=== PATIENT | female | born 1950 | race Caucasian/White ===

== ENCOUNTER 2016-11-30 13:54 | Outpatient (CLI) ==
[2016-10-24 20:20] VITALS: BMI 30.2
--- NOTE | 2016-11-30 15:52 | MRI ---
EXAM: MRI lumbar spine without IV contrast. DATE: 11/30/2016. HISTORY: Low back pain. TECHNIQUE: Sagittal and axial T1W and T2W sequences of the lumbar spine along with sagittal IR and coronal T2W sequences were obtained using 1.2 Zena magnet. No IV contrast. COMPARISON: CT L-spine 10/24/2016. MRI L-spine 28 February 2016.. FINDINGS: There are five [id number] lumbar vertebra. Minimal/mild rotatory levoscoliosis of t he lumbar spine is observed, with apex of curvature at L3-4. Minor subluxations at L1-2, L2-3, and L4-5 are similar to previous MRI. There is approximate 3 mm left lateral subluxation of L4 relative to L5. Prominent anterior and lateral osteophytes are seen at multiple lumbar levels. No acute fr acture, osseous malignancy, or pars interarticularis defect is identified. Decompression laminectom ies have been formed at L3, L4, and L5. Partial facet resections are noted at L3 and L4. T2W/T1W b right, 5 mm and 9 mm foci in the L5 body are likely benign hemangiomas. Mild T11-12, mild L1-2, min or L2-3, mild L3-4, minor right-sided L4-5, and marked L5-S1 disc space narrowing is detected. No s acral fracture or stress reaction is evident. 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 C onus medullaris terminates at L1. Visible spinal cord is normal. No retroperitoneal lymphadenopathy, paraspinal mass, or aortic aneurysm is detected. Psoas muscles are normal. There is mild to marked bilateral posterior paraspinal muscle atrophy at L5 and S1 leve ls. Multiple bilateral renal cysts with T2W bright, T1W dark signal are similar to February 2016. A la rge, loculated cyst in the mid/upper pole left kidney appears to be 9.7 cm in length and contains in ternal calcifications. Largest cyst in the right kidney measures 3.7 x 4.1 cm, and is located at th e medial cortex midzone. No definitive solid renal mass or hydronephrosis. No distinct adrenal, hep atic, or splenic neoplasm is identified. CBD is 7.9 mm diameter, without distinct focal stones or p ancreatic head mass/inflammation. Segmental analysis: T11-12: Small posterior disc bulge causes minor central canal stenosis, but does not contact the co rd. Left foramen slightly narrowed due to mild facet disease. T12-L1: Minor posterior disc bulge does not cause central stenosis or foraminal stenosis. L1-2: Mild anterior subluxation of L2, moderate concentric disc bulge, spondylotic ridge at the L1 inferior endplate, mild facet arthropathy and mild ligamentum flavum hypertrophy cause mild central canal stenosis and mild bilateral foraminal stenoses. L2-3: Minor anterior subluxation of L2, moderate concentric disc bulge, small spondylotic ridge at the L2 inferior endplate, mild bilateral facet arthropathy, and slight ligamentum flavum hypertrophy cause triangulation of the canal and mild bilateral foraminal stenoses. L3-4: S/P decompression laminectomies. Moderate concentric disc bulge and mild bilateral facet art hropathy cause moderate right and mild left foraminal stenoses. Right L3 nerve root approaches the disc bulge near the lateral margin of the foramen. No central canal stenosis. L4-5: S/P decompression laminectomies. Small pseudodisc bulge, moderate right facet arthropathy, m ild left facet arthropathy cause mild/moderate right and mild left foraminal stenoses. Each L4 nerv e root contacts the disc bulge near the lateral margin of the foramen. No central canal stenosis. Left L5-S1: Moderate concentric disc bulge, small spondylotic ridge at the L5 inferior endplate, an d mild bilateral facet arthropathy cause mild left foraminal narrowing. Left L5 nerve root contacts disc bulge/osteophyte near the foramen. No central canal stenosis. IMPRESSIONS: 1. S/P decompression laminectomies and facet resections at L3-4 and L4-5. 2. Multilevel central canal stenoses (T11-12: Minor. L1-2: Mild. L2-3: (Minor). 3. Multilevel foraminal stenosis. Right L3, both L4, and left L5 nerve roots contact disc bulges/o steophytes near the foramen, and could be sources for pain/radiculopathy. 4. Chronic Schmorl's nodes at T11 and L1. 5. Benign hemangiomas in the L5 vertebra. 6. Bilateral renal cortical cysts, similar to February 2016.
== END 2016-11-30 13:55 | disposition home or self-care (01) ==
LOC: RAD 13:54
PROVIDERS: ATTEND Nurse Practitioner Family
DX: M54.5 Low back pain (principal); M54.10 Radiculopathy, site unspecified; Z98.890 Other specified postprocedural states; V89.2XXD Person injured in unspecified motor-vehicle accident, traffic, subsequent encounter

== ENCOUNTER 2017-03-23 09:26 | Emergency (ER) ==
[2017-03-23 09:30] VITALS: BP 135/84; TEMP 99.5; BMI 32.1
--- NOTE | 2017-03-23 09:51 | ED.PDOC ---
General ED Provider: Dr. RADHA HENLEY JR Chief Complaint: Abdominal Pain Stated Complaint: sharp pain to lower abd--no previous episode--pain is constant --cold chills at times--no change in bowel or bladder [End] 2 days 99.5 84 16 97 135/84 1010 Time Seen by Physician: 09:51 Information Source: Patient Exam Limitations: No limitations Primary Care Provider[facility] Documentation Reviewed and Agree: No Review of Systems - Review Of Systems Constitutional: Reports: No symptoms Eyes: Reports: No symptoms Ears, Nose, Mouth, Throat: Reports: No symptoms Respiratory: Reports: No symptoms Cardiac: Reports: No symptoms GI: Reports: Abdomen distended, Abdominal pain : Reports: No symptoms Musculoskeletal: Reports: No symptoms Skin: Reports: No symptoms Neurological: Reports: No symptoms Endocrine: Reports: No symptoms Hematologic/Lymphatic: Reports: No symptoms All Other Systems: Other Past Medical History - Past Medical History Previously Healthy: No Endocrine: Reports: None Cardiovascular: Reports: Hypertension Respiratory: Reports: COPD Hematological: Reports: Anemia Gastrointestinal: Reports: GERD, Liver (hepc), Other (h/o HEP c s/p treatments) Genitourinary: Reports: Kidney stones Neuro/Psych: Reports: Anxiety, Depression Musculoskeletal: Reports: Arthritis, Back Pain Cancer: Reports: None Last Menstrual Period: hysterectomy Other Pertinent Past Medical History: htn ks arth chronic back hepc - Surgical History General Surgical History: Reports: Hysterectomy, Appendectomy, Cholecystectomy, Back Surgery - Family History Family History: Reports: None - Social History Smoking Status: Former smoker Hx Substance Use: No Alcohol Screening: None - Immunizations Tetanus Shot up to Date: Yes Physical Exam - Physical Exam Appearance: Well-appearing Ill-appearing: Moderate Pain Distress: Moderate Eyes: ONDINA, EOMI, Conjunctiva clear ENT: Ears normal, Nose normal, Oropharynx normal Neck: Supple Respiratory: Airway patent, Breath sounds clear, Breath sounds equal, Respirations nonlabored Cardiovascular: RRR, Pulses normal, No rub, No murmur GI/: Soft, No masses, Bowel sounds normal, Tender Musculoskeletal: Normal strength, ROM intact, No edema, No calf tenderness Skin: Warm, Dry, Normal color Neurological: Sensation intact, Motor intact, Reflexes intact, Cranial nerves intact, Alert, Oriented Psychiatric: Affect appropriate, Mood appropriate Critical Care Note - Critical Care Note Total Time (mins): 0 Course - Course Hematology/Chemistry: 03/23/17 10:00 03/23/17 10:00 Orders, Labs, Meds: Lab Review 03/23/17 10:00 WBC 6.99 RBC 4.30 Hgb 12.7 Hct 37.8 MCV 87.9 MCH 29.5 MCHC 33.6 RDW Coeff of Riki 13.6 Plt Count 181 Immature Gran % (Auto) 0.3 Neut % (Auto) 58.5 Lymph % (Auto) 32.8 Titus % (Auto) 7.7 Eos % (Auto) 0.4 Baso % (Auto) 0.3 Immature Gran # (Auto) 0.0 Neut # 4.1 Lymph # 2.3 Titus # 0.5 Eos # 0.0 Baso # 0.0 Sodium 139 Potassium 4.7 Chloride 106 Carbon Dioxide 24 Anion Gap 13.7 BUN 28 H Creatinine 1.00 Estimated GFR (MDRD) 55.00 BUN/Creatinine Ratio 28.00 Glucose 98 Calcium 9.6 Total Bilirubin 0.81 AST 42 H ALT 40 Alkaline Phosphatase 169 H Total Protein 8.3 H Albumin 4.0 Globulin 4.3 Albumin/Globulin Ratio 0.93 Amylase 58 Lipase 31 Procalcitonin < 0.05 Urine Color Yellow Urine Clarity Clear Urine pH 5.5 Ur Specific [place] 1.015 Urine Protein Negative Urine Glucose (UA) Negative Urine Ketones Negative Urine Blood Negative Urine Nitrite Negative Urine Bilirubin Negative Urine Urobilinogen 0.2 Ur Leukocyte Esterase Negative H. pylori IgG Antibody Negative Orders Category Date Time Status AMYLASE Stat LAB 03/23/17 10:00 Completed CBC W/ AUTO DIFF Stat LAB 03/23/17 10:00 Completed COMPREHENSIVE METABOLIC PANEL Stat LAB 03/23/17 10:00 Completed H. PYLORI SCREEN Stat LAB 03/23/17 10:00 Completed LIPASE Stat LAB 03/23/17 10:00 Completed PROCALCITONIN Stat LAB 03/23/17 10:00 Completed URINALYSIS C & S IF INDICATED Stat LAB 03/23/17 10:00 Completed Ketorolac Tromethamine [Toradol] MEDS 03/23/17 10:13 Discontinued 60 mg IM ONCE STA CT ABDOMEN/PELVIS WO CONTRAST Stat RADS 03/23/17 09:54 Completed Medications Discontinued Medications Generic Name Dose Route Start Last Admin Trade Name Freq PRN Reason Stop Dose Admin Ketorolac Tromethamine 60 mg 03/23/17 10:13 03/23/17 10:30 Toradol IM 03/23/17 10:14 60 mg ONCE STA Administration Vital Signs: Temp Pulse Resp BP Pulse Ox 03/23/17 09:26 99.5 F 84 16 135/84 97 Departure - Departure Time of Disposition: 11:27 Disposition: HOME SELF-CARE Discharge Problem: Abdominal pain Instructions: Acute Abdominal Pain (ED) Condition: Good Pt referred to PMD for follow-up: Yes Additional Instructions: recheck PMD one week sooner if worse Naprosyn for pain [place] for pain not controlled may need peptobismol if any diarrhea no evidence of infection Prescriptions: Hydrocodone Bit/Acetaminophen [[place] 5-325] 1 - 2 tab PO Q6HR PRN #12 tablet PRN Reason: pain Naproxen [Naprosyn] 500 mg PO Q12HR PRN #30 tablet PRN Reason: PAIN Allergies/Adverse Reactions: Allergies morphine Allergy (Intermediate, Verified 03/23/17 09:32) itching tizanidine HCl [From Zanaflex] Adverse Reaction (Verified 03/23/17 09:32) hallucinations Home Medications: Ambulatory Orders Hydrocodone Bit/Acetaminophen [[place] 7.5-325] 7.5 - 325 mg PO DAILY PRN Gabapentin [Neurontin] 300 mg PO TID 11/12/16 Hydrocodone Bit/Acetaminophen [[place] 5-325] 1 - 2 tab PO Q6HR PRN #12 tablet 08/01 Naproxen [Naprosyn] 500 mg PO Q12HR PRN #30 tablet 03/23/17
[2017-03-23 10:10] LABS: BASOPHILS % (AUTO) 0.3 % (0.0-3.0); EOSINOPHILS % (AUTO) 0.4 % (0.0-7.0); HEMATOCRIT 37.8 % (37.0-47.0); HEMOGLOBIN 12.7 g/dl (12.0-16.0); IMMATURE GRANULOCYTE % (AUTO) 0.3 % (0.0-5.0); LYMPHOCYTES # (AUTO) 2.3 K/uL (0.60-3.4); LYMPHOCYTES % (AUTO) 32.8 (10.0-50.0); MEAN CORPUSCULAR HEMOGLOBIN 29.5 pg (27.0-31.0); MEAN CORPUSCULAR HGB CONC 33.6 (31.8-35.4); MEAN CORPUSCULAR VOLUME 87.9 fl (81.0-99.0); MONOCYTES # (AUTO) 0.5 K/uL (0.4-2.0); MONOCYTES % (AUTO) 7.7 (0-10); NEUTROPHILS # (AUTO) 4.1 K/ul (2.0-6.9); NEUTROPHILS % (AUTO) 58.5; PLATELET COUNT 181 10^3/uL (140-440); WHITE BLOOD COUNT 6.99 K/ul (4.6-10.2)
[2017-03-23] MEDS ORDERED: TORADOL IM STA (10:13)
[2017-03-23 10:17] LABS: BILIRUBIN,URINE Negative (NEGATIVE); KETONES,URINE Negative (NEGATIVE); LEUKOCYTE ESTERASE ,URINE Negative (NEGATIVE); NITRITE,URINE Negative (NEGATIVE); PH,URINE 5.5 (5-9); PROTEIN,URINE Negative (NEGATIVE); URINE, BLOOD Negative (NEGATIVE)
[2017-03-23 10:22] LABS: H. PYLORI ANTIBODY NEGATIVE (NEGATIVE); H.PYLORI INTERNAL QC INTERNAL QC VALID
[2017-03-23 10:23] LABS: ADD URINE MICROSCOPIC NO
[2017-03-23 10:32] LABS: ALBUMIN/GLOBULIN RATIO 0.93; ANION GAP 13.7; BILIRUBIN,TOTAL 0.81 mg/dL (0.00-1.20); CALCIUM 9.6 mg/dL (8.2-10.2); POTASSIUM 4.7 mmol/L (3.5-5.10); TOTAL PROTEIN 8.3 g/dL (5.8-8.1)
--- NOTE | 2017-03-23 10:56 | CT ---
EXAM: CT ABDOMEN AND PELVIS HISTORY: Lower abdominal/groin pain TECHNIQUE: CT abdomen and pelvis without intravenous contrast. Images were reconstructed using 5 m m section thickness. Reformations were prepared. COMPARISON: 07/09/2016 FINDINGS: Diagnostic limitations exist without including contrast enhanced images. No focal hepatic or spleni c lesions. Gallbladder is absent. Pancreas and adrenal glands reveal no pathology. Bilateral renal cortical cystic masses with the largest on the left demonstrating a partially calcif ied septation and measuring up to 7.5 cm. These are unchanged since the comparison study and when c ompared to older exam including 2009 this larger cystic mass does not appear obviously changed altho ugh some of the smaller cystic masses have slightly enlarged. These can be followed by ultrasound t o assure simple nature and stability. There is no hydronephrosis or evidence of ureteral obstructio n. Mild aortic atherosclerosis. No gastric distension. An appendix, if present is not seen. No right lower quadrant inflammation is obvious. Unremarkable bowel gas pattern. No uterus is seen. Urina ry bladder appears normal. There is no ascites or inflammatory infiltration of the abdominal fat. No abdominal wall hernia. Severe degenerative disc and facet disease of the lumbar spine. Moderate arthropathy of the sacroiliac joints. The lung bases are free of acute infiltrate. No pneumoperit oneum. IMPRESSION: 1. No obvious acute intra-abdominal or pelvic abnormality. 2. Multiple cystic masses of the kidneys suggesting cysts with one on the left large and slightly c omplex. This larger entity is stable since older exams. These can be followed by ultrasound to ass ure a simple nature and stability. 2. Severe degenerative changes of the lower spine and sacroiliac joints.
== END 2017-03-23 11:35 | disposition home or self-care (01) ==
LOC: ED 09:26
DX: R10.30 Lower abdominal pain, unspecified (principal); R14.0 Abdominal distension (gaseous); I10 Essential (primary) hypertension; Z87.442 Personal history of urinary calculi; Z79.899 Other long term (current) drug therapy
CPT/HCPCS: 36415; 80053; 81001; 82150; 83690; 84145; 85025; 86677; 96372; 99283

== ENCOUNTER 2017-07-12 08:19 | Emergency (ER) ==
[2017-07-12 08:19] VITALS: BMI 32.1
[2017-07-12 08:24] VITALS: BP 143/67; TEMP 99.1
[2017-07-12] MEDS ORDERED: TORADOL IM STA (08:39)
[2017-07-12] MEDS ORDERED: ATIVAN PO STA (08:42)
--- NOTE | 2017-07-12 08:43 | ED.PDOC ---
General ED Provider: Dr. RADHA HENLEY JR Chief Complaint: Neck Pain Non-Injury Stated Complaint: woke hurting; heat ice tylenol without relief; if turns her head pain up into her head[End][End]2 days neck pain 99.1 100 16 96% 143/67 Time Seen by Physician: 08:43 Mode of Arrival: Walk-In Information Source: Patient Exam Limitations: No limitations Primary Care [facility] T[facility] Documentation Reviewed and Agree: No Review of Systems - Review Of Systems Constitutional: Reports: Malaise, Weakness Eyes: Reports: No symptoms Ears, Nose, Mouth, Throat: Reports: No symptoms Respiratory: Reports: No symptoms Cardiac: Reports: No symptoms GI: Reports: No symptoms : Reports: No symptoms Musculoskeletal: Reports: Neck pain Skin: Reports: No symptoms Neurological: Reports: No symptoms Endocrine: Reports: No symptoms Hematologic/Lymphatic: Reports: No symptoms All Other Systems: Other Past Medical History - Past Medical History Previously Healthy: No Endocrine: Reports: None Cardiovascular: Reports: Hypertension Respiratory: Reports: COPD Hematological: Reports: Anemia Gastrointestinal: Reports: GERD, Liver (hepc), Other (h/o HEP c s/p treatments) Genitourinary: Reports: Kidney stones Neuro/Psych: Reports: Anxiety, Depression Musculoskeletal: Reports: Arthritis, Back Pain Cancer: Reports: None Last Menstrual Period: n/a HYSTERECTOMY - Surgical History General Surgical History: Reports: Hysterectomy, Appendectomy, Cholecystectomy, Back Surgery (LUMBAR) - Family History Family History: Reports: None - Social History Smoking Status: Former smoker Hx Substance Use: No Alcohol Screening: None Physical Exam - Physical Exam Appearance: Well-appearing Ill-appearing: Mild Pain Distress: Moderate Eyes: ONDINA, EOMI, Conjunctiva clear ENT: Ears normal, Nose normal, Oropharynx normal Neck: Nonsupple (complains of pain with exam but no rigidity on exam tender paraspinls ans posterior cspine) Respiratory: Airway patent, Breath sounds clear, Breath sounds equal, Respirations nonlabored Cardiovascular: RRR, Pulses normal, No rub, No murmur GI/: Soft, Nontender, No masses, Bowel sounds normal, No Organomegaly Musculoskeletal: Normal strength, ROM intact, No edema, No calf tenderness Skin: Warm, Dry, Normal color Neurological: Sensation intact, Motor intact, Reflexes intact, Cranial nerves intact, Alert, Oriented Psychiatric: Affect appropriate, Mood appropriate Re-Evaluation - Re-Evaluation Time of Re-Evaluation: 09:27 Status: Improved (refuses neck films will follow with PMD) Critical Care Note - Critical Care Note Total Time (mins): 0 Course - Course Orders, Labs, Meds: Orders Category Date Time Status Ketorolac Tromethamine [Toradol] MEDS 07/12/17 08:39 Discontinued 60 mg IM ONCE STA Lorazepam [Ativan] MEDS 07/12/17 08:42 Discontinued 0.5 mg PO ONCE STA CT CERVICAL SPINE W/O CONTRAST Stat RADS 07/12/17 09:11 Ordered Medications Discontinued Medications Generic Name Dose Route Start Last Admin Trade Name Freq PRN Reason Stop Dose Admin Ketorolac Tromethamine 60 mg 07/12/17 08:39 07/12/17 09:02 Toradol IM 07/12/17 08:40 60 mg ONCE STA Administration Lorazepam 0.5 mg 07/12/17 08:42 07/12/17 09:10 Ativan PO 07/12/17 08:43 0.5 mg ONCE STA Administration Vital Signs: Temp Pulse Resp BP Pulse Ox 07/12/17 08:20 99.1 F 100 H 16 143/67 H 96 Departure - Departure Time of Disposition: 09:29 Disposition: HOME SELF-CARE Discharge Problem: Neck pain Instructions: Muscle Spasm (ED), Cervical Strain (ED) Condition: Good Pt referred to PMD for follow-up: Yes Additional Instructions: follow up with your physician this week X RAYS OF NECK WERE NOT DONE may use Toradol for pain discuss with your physician this week Prescriptions: Ketorolac Tromethamine [Toradol] 10 mg PO QID PRN #20 tablet PRN Reason: PAIN Allergies/Adverse Reactions: Allergies morphine Allergy (Intermediate, Verified 07/12/17 08:25) itching tizanidine HCl [From Zanaflex] Adverse Reaction (Verified 07/12/17 08:25) hallucinations Home Medications: Ambulatory Orders Hydrocodone Bit/Acetaminophen [[place] 7.5-325] 7.5 - 325 mg PO DAILY PRN Gabapentin [Neurontin] 300 mg PO TID 11/12/16 Ketorolac Tromethamine [Toradol] 10 mg PO QID PRN #20 tablet 07/12/17
== END 2017-07-12 09:35 | disposition home or self-care (01) ==
LOC: ED 08:19
DX: M54.2 Cervicalgia (principal)
CPT/HCPCS: 96372; 99282

== ENCOUNTER 2017-08-03 13:23 | Outpatient (CLI) | payer OTHER ==
[2017-08-03 15:29] LABS: ALBUMIN 3.6 g/dL (3.4-5.0); ALBUMIN/GLOBULIN RATIO 0.82; ANION GAP 12.6; BILIRUBIN,TOTAL 0.6 mg/dL (0.00-1.20); BUN/CREATININE RATIO 21.33; CALCIUM 9.8 mg/dL (8.2-10.2); CHOL/HDL RATIO 2.9 (4.5-5.5); CREATININE 0.75 mg/dL (0.60-1.30); POTASSIUM 4.6 mmol/L (3.5-5.10)
== END 2017-08-03 13:24 | disposition home or self-care (01) ==
LOC: LAB 13:23
PROVIDERS: ATTEND Nurse Practitioner Family
DX: I10 Essential (primary) hypertension (principal); F41.1 Generalized anxiety disorder
CPT/HCPCS: 36415; 80053; 80061; 84443

== ENCOUNTER 2017-10-14 08:19 | Emergency (ER) ==
[2017-10-14 08:24] VITALS: BP 128/88; TEMP 98.8; BMI 33.0
--- NOTE | 2017-10-14 09:22 | ED.PDOC ---
General ED Provider: Dr. SOFI VERAS Chief Complaint: Extremity Swelling/Pain Stated Complaint: right lower leg pain and brsuing Time Seen by Physician: 08:30 (no trama reported ) Mode of Arrival: Walk-In Information Source: Patient Exam Limitations: No limitations Primary Care Provider: [facility] Nursing and Triage Documentation Reviewed and Agree: Yes Musculoskeletal Complaint Exam - Lower Extremity Complaint/Exam Location of Pain: Reports: Right, Leg (below knee brused and tender ) Mechanism of Injury: Reports: No known trauma Onset/Duration: 1 day Symptoms Are: Still present Onset of Pain: Reports: Hours Initial Severity: Mild Current Severity: Mild Location: Reports: Discrete (right tib/fib) Character: Reports: Aching Alleviating: Reports: Rest Aggravating: Reports: None Able to Bear Weight: Yes Associated Signs and Symptoms: Reports: Bruising. Denies: Swelling, Redness, Fever, Weakness, Numbness, Tingling Septic Arthritis Risk Factors: Reports: None Related Surgical History: Reports: None Compartment Syndrome Risk Factors: Present: Pain Differential Diagnoses: DVT, Fracture, Strain, Sprain Review of Systems - Review Of Systems Constitutional: Reports: No symptoms Eyes: Reports: No symptoms Ears, Nose, Mouth, Throat: Reports: No symptoms Respiratory: Reports: No symptoms Cardiac: Reports: No symptoms GI: Reports: No symptoms : Reports: No symptoms Musculoskeletal: Reports: Other (right tib/fib brusing and pain) Skin: Reports: No symptoms Neurological: Reports: No symptoms Endocrine: Reports: No symptoms Hematologic/Lymphatic: Reports: No symptoms All Other Systems: Reviewed and Negative Past Medical History - Past Medical History Previously Healthy: No Endocrine: Reports: None Cardiovascular: Reports: Hypertension Respiratory: Reports: COPD Hematological: Reports: Anemia Gastrointestinal: Reports: GERD, Liver (hepc), Other (h/o HEP c s/p treatments) Genitourinary: Reports: Kidney stones Neuro/Psych: Reports: Anxiety, Depression Musculoskeletal: Reports: Arthritis, Back Pain Cancer: Reports: None Last Menstrual Period: n/a Other Pertinent Past Medical History: htn ks arth chronic back hepc - Surgical History General Surgical History: Reports: Hysterectomy, Appendectomy, Cholecystectomy, Back Surgery (LUMBAR) - Family History Family History: Reports: None - Social History Smoking Status: Former smoker Hx Substance Use: No Alcohol Screening: None Physical Exam - Physical Exam Appearance: Well-appearing, No pain distress, Well-nourished Eyes: ONDINA, EOMI, Conjunctiva clear ENT: Ears normal, Nose normal, Oropharynx normal Respiratory: Airway patent, Breath sounds clear, Breath sounds equal, Respirations nonlabored Cardiovascular: RRR, Pulses normal, No rub, No murmur GI/: Soft, Nontender, No masses, Bowel sounds normal, No Organomegaly Musculoskeletal: Calf tenderness (right and right tib fib brused ) Skin: Warm, Dry, Normal color Neurological: Sensation intact, Motor intact, Reflexes intact, Cranial nerves intact, Alert, Oriented Psychiatric: Affect appropriate, Mood appropriate Critical Care Note - Critical Care Note Total Time (mins): 0 Course - Course Orders, Labs, Meds: Orders Category Date Time Status ANKLE, RIGHT MIN 3 VIEWS Stat RADS 10/14/17 08:37 Ordered FOOT, RIGHT 3 VIEWS Stat RADS 10/14/17 08:37 Ordered TIBIA/FIBULA, RIGHT 2 VIEW Stat RADS 10/14/17 08:37 Ordered U/S VENOUS SCAN RT. LEG Stat RADS 10/14/17 08:36 Ordered Vital Signs: Temp Pulse Resp BP Pulse Ox 10/14/17 08:21 98.8 F 96 H 16 128/88 97 Departure - Departure Time of Disposition: 10:10 (see photos) Disposition: HOME SELF-CARE Discharge Problem: Contusion of leg, right Qualifiers: Encounter type: initial encounter Qualified Code(s): S80.11XA - Contusion of right lower leg, initial encounter Instructions: Leg Pain (ED), Contusion in Adults (ED) Condition: Good Pt referred to PMD for follow-up: Yes Additional Instructions: Please call your Family Physician as soon as possible to schedule a follow-up appointment. Allergies/Adverse Reactions: Allergies morphine Allergy (Intermediate, Verified 10/14/17 08:25) itching tizanidine HCl [From Zanaflex] Adverse Reaction (Verified 10/14/17 08:25) hallucinations Home Medications: Ambulatory Orders Hydrocodone/Acetaminophen [[place] 7.5-325 Tablet] 1 each PO BID #60 tab-cap 08/03 Disposition Discussed With: Patient
--- NOTE | 2017-10-14 09:26 | DI ---
EXAM: Three views of the right foot. History: Right foot pain. Findings: No acute fracture or dislocation. Mild polyarticular joint space narrowing. Small plantar spur. No radiopaque foreign bodies. Atherosclerotic vascular calcifications. Impression: No acute osseous abnormality
--- NOTE | 2017-10-14 09:27 | DI ---
EXAM: Two views of the right tibia and fibula. History: Right leg pain. Findings: No acute fracture or dislocation. Mild degenerative changes seen at the right knee joint. No radiopaque foreign bodies. Impression: No acute osseous abnormality
--- NOTE | 2017-10-14 09:27 | DI ---
EXAM: RIGHT ANKLE THREE VIEWS HISTORY: Pain. FINDINGS / IMPRESSION: Trabecular markings are accentuated consistent with at least mild diffuse dem ineralization. No significant arthropathy is seen. There is no fracture or joint effusion. Mild bruce ny spurring of the posterior calcaneus.
--- NOTE | 2017-10-14 09:50 | US ---
EXAM: Right lower extremity venous doppler. HISTORY: Right leg pain and swelling for 3 days. COMPARISON: None available. TECHNIQUE: Multiple grayscale and color doppler images were obtained. FINDINGS: There is normal flow, compressibility and augmentation of flow within the right common fem oral, greater saphenous, profunda, femoral, popliteal, posterior tibial, anterior tibial and peroneal veins. IMPRESSION: No evidence for right lower extremity deep vein thrombosis at the levels examined.
== END 2017-10-14 09:37 | disposition home or self-care (01) ==
LOC: ED 08:19
DX: S80.11XA Contusion of right lower leg, initial encounter (principal); M79.661 Pain in right lower leg
CPT/HCPCS: 99283

== ENCOUNTER 2017-12-07 08:52 | Outpatient (CLI) ==
--- NOTE | 2017-12-08 08:43 | MRI ---
EXAM: Lumbar spine MRI without and with contrast. HISTORY: Dorsalgia. COMPARISON: Lumbar spine MRI 11/30/2016. TECHNIQUE: Multiplanar, multisequence MR images were acquired of the lumbar spine without and with c ontrast. Some sequences are degraded by patient motion. FINDINGS: Conus medullaris ends at L1 and has normal signal intensity and no abnormal leptomeningeal enhancement. Five non-rib bearing lumbar vertebra are present. There is mild rotatory levoscoliosi s centered at L3-4, 3 mm leftward translation of L3 with respect to L2 and 4 mm rightward translation of L5 with respect to L4 unchanged from previously. There is mild loss of the usual smooth lumbar l ordosis with 2 mm retrolisthesis of L1 on L2 and L2 on L3 and 3 mm degenerative anterolisthesis of L4 on L5 unchanged from previously. The lumbar vertebra are generally normal in height and intrinsic b one marrow signal. There is osteophytosis with moderate to marked disc space narrowing and mild endp late irregularity that is greatest left laterally at L1-2, right laterally at L3-4 and laterally bila terally at L5-S1. Mild bright STIR signal edema is present along the anterior endplates at T12-L1 an d L1-2. There are chronic Schmorl's nodes at T11, L1, L2 and L4. Benign intraosseous hemangiomas ar e present at L5. There is osteoarthrosis of both sacroiliac joints. There is mild bright STIR signal edema in the right posterior paraspinous muscles from L3-S1, greatest at L5-S1. The partially visualized liver and spleen are unremarkable. Multiple bilateral renal cysts are prese nt and there is a large partially visualized loculated cyst with septations arising from the upper po le of the left kidney that measures at least 12.3 cm AP x 12.3 cm in length. T11-12: There is a minor diffuse disc bulge with marginal osteophytes and a moderate left paracentra l disc protrusion which is better shown on the present exam. This mildly indents the left ventral tho racic cord although cerebrospinal fluid is preserved around the cord. There is no central canal sten osis or foraminal stenosis. T12-L1: There is a mild spondylotic disc bulge and mild bilateral facet arthropathy and ligamentum f lavum hypertrophy without foraminal stenosis or central canal stenosis. L1-2: There is retrolisthesis of L1 on L2 and there is a moderate disc bulge and mild bilateral hype rtrophic facet arthropathy and ligamentum flavum hypertrophy. This causes mild spinal stenosis and m ild to moderate bilateral foraminal stenosis. AP diameter of the thecal sac is 9 mm. L2-3: There is minor retrolisthesis of L2 on L3 and there is a mild to moderate disc bulge and bilat eral hypertrophic facet arthropathy and ligamentum flavum hypertrophy. There is triangulation of the thecal sac and mild to moderate right and mild left neural foraminal stenosis. L3-4: There are postoperative bilateral decompressive hemilaminectomy and partial medial facetectomy changes. Enhancing dorsal epidural fibrosis is present which extends into the medial posterior para spinous muscles. There is a diffuse disc bulge that is asymmetric to the right with moderate right l ateral/far endplate osteophytes that narrows the inferior right neural foramen and encroach on the ex iting right L3 nerve. Residual right greater than left hypertrophic facet arthropathy is present and there is moderate right and mild left neural foraminal stenosis. There is no central canal stenosis . L4-5: There are postoperative bilateral decompressive hemilaminectomy and partial medial facetectomy changes. Enhancing lateral and dorsal epidural fibrosis is present which partially surrounds the ri ght L4 nerve in the medial right foramen. There is a diffuse disc bulge/pseudo disc bulge that is as ymmetric to the right which contacts both exiting L4 nerves. Residual right greater than left hypert rophic facet arthropathy is present and there is moderate right and mild to moderate left neural fora josefina stenosis with compression of the right L4 nerve. There is no central canal stenosis. L5-S1: There is a diffuse spondylotic disc bulge with bilateral lateral/far lateral endplate osteoph ytes, larger on the left that narrow the inferior neural foramina bilaterally and encroach on both ex iting L5 nerves. There are postoperative bilateral hemilaminectomy and partial medial facetectomy ch anges. Residual left facet hypertrophy is present and there is mild left neural foraminal stenosis. IMPRESSION: 1. Compared to 11/30/2016, there are stable postoperative bilateral decompressive hemilaminectomy an d partial facetectomy changes at L3-4, L4-5 and L5-S1 with enhancing epidural fibrosis at L4-5 that e xtends into the medial right neural foramen partially surrounding the right L4 nerve. No central can al stenosis. 2. No change 3 mm degenerative anterolisthesis L4 on L5 and moderate lumbar degenerative spondylosis with mild spinal stenosis at L1-2. 3. Multilevel foraminal stenosis. 4. Multiple bilateral renal cysts are present with a large partially visualized exophytic left renal multiloculated cyst. Dedicated CT or MRI could better define the anatomy.
== END 2017-12-07 08:53 | disposition home or self-care (01) ==
LOC: RAD 08:52
PROVIDERS: ATTEND Nurse Practitioner Family
DX: M54.9 Dorsalgia, unspecified (principal); G89.29 Other chronic pain; M54.10 Radiculopathy, site unspecified; F41.1 Generalized anxiety disorder
CPT/HCPCS: 36415; 80053; 85025

== ENCOUNTER 2017-12-09 08:52 | Outpatient (CLI) ==
--- NOTE | 2017-12-09 12:00 | MRI ---
EXAM: MRI abdomen without and with contrast HISTORY: Cystic kidney, acquired TECHNIQUE: Multiplanar, multisequence without and following the administration of intravenous Omnisc an, 13 mL using a dynamic contrast enhanced renal protocol COMPARISON: CT abdomen from 03/23/2017 FINDINGS: The heart size is normal. No pericardial or pleural effusions are appreciated. There is no evidence of hepatic steatosis. No suspicious hepatic lesions are detected. The portal a nd hepatic veins are patent. The spleen has normal size and signal. The pancreas has normal signal and enhancement. The adrenal glands are normal. There is a complex multi septated cystic lesion at the superior pole of the left kidney measuring up to 11.4 cm. The internal septations enhance. Additional simple acquired bilateral renal cysts are n oted. No renal collecting system dilatation is evident. The visible intestines have normal signal a nd caliber without evidence of obstruction or acute inflammation. The abdominal aorta has normal antolin iber and flow signal. No lymphadenopathy or ascites are evident. The bone marrow signal intensity i s maintained. IMPRESSION: 1. Complex cyst at the superior pole of the left kidney measuring 5.4 cm. 12-month follow-up recomm ended. 2. Multiple additional simple acquired renal cysts. 3. Otherwise normal.
== END 2017-12-09 08:53 | disposition home or self-care (01) ==
LOC: RAD 08:52
PROVIDERS: ATTEND Nurse Practitioner Family
DX: N28.1 Cyst of kidney, acquired (principal)

== ENCOUNTER 2018-03-21 18:32 | Emergency (ER) ==
[2018-03-21 18:42] VITALS: BP 149/93; TEMP 98.7; BMI 31.6
[2018-03-21] MEDS ORDERED: TORADOL IM STA (19:16)
--- NOTE | 2018-03-21 19:31 | ED.PDOC ---
General ED Provider: Dr. YESSENIA RAY Chief Complaint: Extremity Pain/Injury Stated Complaint: Been hurting in the right hip and knee, hurts to walk. No injury or falls Time Seen by Physician: 19:29 Information Source: Patient Primary Care Provider: YESSENIA RAY-[facility] Nursing and Triage Documentation Reviewed and Agree: Yes Reviewed sepsis parameters & appropriate labs ordered?: No System Inflammatory Response Syndrome: Not Applicable Sepsis Protocol: For patient's 13 years and over: Temp is 96.8 and below OR 101 and greater Pulse >90 BPM Resp >20/minute Acutely Altered Mental Status Are patient's symptoms suggestive of a new infection, such as: -Pneumonia -Skin, Soft Tissue -Endocarditis -UTI -Bone, Joint Infection -Implantable Device -Acute Abdominal Infection -Wound Infection -Meningitis -Blood Stream Catheter Infection -Unknown Musculoskeletal Complaint Exam - Hip/Pelvis Complaint/Exam Location of Pain: Reports: Right Mechanism of Injury: Reports: No known trauma Symptoms Are: Still present Initial Severity: Moderate Current Severity: Moderate Location: Reports: Discrete Character: Reports: Aching, Throbbing Aggravating: Reports: Movement Alleviating: Reports: None Associated Signs and Symptoms: Denies: Swelling, Redness, Bruising, Fever, Weakness, Dizziness, Syncope, Abdominal pain, Knee pain Able to Bear Weight: Yes Related Surgical History: Reports: None Pelvis Palpation: Stable Tenderness: Present: Right, Greater Trochanter Range of Motion Limited In: Present: Flexion, Extension, Abduction Differential Diagnoses: Bursitis, Fracture, Sprain Review of Systems - Review Of Systems Constitutional: Reports: No symptoms Eyes: Reports: No symptoms Ears, Nose, Mouth, Throat: Reports: No symptoms Respiratory: Reports: No symptoms Cardiac: Reports: No symptoms GI: Reports: No symptoms : Reports: No symptoms Musculoskeletal: Reports: Joint pain Skin: Reports: No symptoms Neurological: Reports: No symptoms Endocrine: Reports: No symptoms Hematologic/Lymphatic: Reports: No symptoms All Other Systems: Reviewed and Negative Past Medical History - Past Medical History Previously Healthy: No Endocrine: Reports: None Cardiovascular: Reports: Hypertension Respiratory: Reports: COPD Hematological: Reports: Anemia Gastrointestinal: Reports: GERD, Liver (hepc), Other (h/o HEP c s/p treatments) Genitourinary: Reports: Kidney stones Neuro/Psych: Reports: Anxiety, Depression Musculoskeletal: Reports: Arthritis, Back Pain Cancer: Reports: None Last Menstrual Period: unknown Other Pertinent Past Medical History: htn ks arth chronic back hepc - Surgical History General Surgical History: Reports: Hysterectomy, Appendectomy, Cholecystectomy, Back Surgery (LUMBAR) - Family History Family History: Reports: None - Social History Smoking Status: Former smoker Hx Substance Use: No Alcohol Screening: None Physical Exam - Physical Exam Appearance: Well-appearing, No pain distress, Well-nourished Eyes: ONDINA, EOMI, Conjunctiva clear ENT: Ears normal, Nose normal, Oropharynx normal Respiratory: Airway patent, Breath sounds clear, Breath sounds equal, Respirations nonlabored Cardiovascular: RRR, Pulses normal, No rub, No murmur GI/: Soft, Nontender, No masses, Bowel sounds normal, No Organomegaly Musculoskeletal: No edema, No calf tenderness, Limited ROM, Limited strength Skin: Warm, Dry, Normal color Neurological: Sensation intact, Motor intact, Reflexes intact, Cranial nerves intact, Alert, Oriented Psychiatric: Affect appropriate, Mood appropriate Interpretation - Radiology Interpretation Radiology Interpretation By: ED Physician Radiology Results: Negative Critical Care Note - Critical Care Note Total Time (mins): 30 Course - Course Orders, Labs, Meds: Orders Category Date Time Status Ketorolac Tromethamine [Toradol] MEDS 03/21/18 19:16 Discontinued 30 mg IM ONCE STA HIP, RIGHT 2 VIEWS Stat RADS 03/21/18 19:16 Taken KNEE, RIGHT 4 VIEWS Stat RADS 03/21/18 19:16 Taken Medications Discontinued Medications Generic Name Dose Route Start Last Admin Trade Name Freq PRN Reason Stop Dose Admin Ketorolac Tromethamine 30 mg 03/21/18 19:16 03/21/18 19:34 Toradol IM 03/21/18 19:17 30 mg ONCE STA Administration Vital Signs: Temp Pulse Resp BP Pulse Ox 03/21/18 18:33 98.7 F 94 H 20 149/93 H 97 Departure - Departure Time of Disposition: 19:56 Disposition: HOME SELF-CARE Discharge Problem: Hip pain, right Instructions: Osteoarthritis (ED) Condition: Stable Pt referred to PMD for follow-up: Yes IPMP verified?: Yes Additional Instructions: If pain not better in 2-3 days, needs further evaluation f/u with [facility] Prescriptions: Hydrocodone/Acetaminophen [[place] 5-325 Tablet] 1 tab PO TID PRN #10 tablet PRN Reason: PAIN Prednisone 10 mg PO BIDWM #14 tablet Allergies/Adverse Reactions: Allergies morphine Allergy (Intermediate, Verified 03/21/18 18:43) itching tizanidine HCl [From Zanaflex] Adverse Reaction (Verified 03/21/18 18:43) hallucinations Home Medications: Ambulatory Orders Hydrocodone/Acetaminophen [[place] 5-325 Tablet] 1 tab PO TID PRN #10 tablet 03/21 Prednisone 10 mg PO BIDWM #14 tablet 03/21/18 Disposition Discussed With: Patient
--- NOTE | 2018-03-22 07:03 | DI ---
EXAM: Two views of the right hip. History: Right hip pain. Findings: Degenerative changes within the lower lumbar spine. Mild to moderate degenerative changes of bilateral sacroiliac joints. Mild to moderate narrowing of the right hip joint with marginal scl erosis and osteophyte formation. No acute fracture or dislocation. Osteopenia. Evidence of old tra sara at the pubic symphysis. Impression: 1. No acute osseous abnormality. 2. Mild to moderate osteoarthritis of the right hip joint
--- NOTE | 2018-03-22 07:03 | DI ---
EXAM: Four views of the right knee. History: Right knee pain. Findings: Osteopenia. No acute fracture or dislocation. Mild to moderate tricompartmental joint sp john narrowing with marginal sclerosis and osteophyte formation. Impression: 1. No acute osseous abnormality. 2. Mild to moderate tricompartmental osteoarthritis
== END 2018-03-21 20:44 | disposition home or self-care (01) ==
LOC: ED 18:32
DX: M17.11 Unilateral primary osteoarthritis, right knee (principal); M16.11 Unilateral primary osteoarthritis, right hip
CPT/HCPCS: 96372; 99282

== ENCOUNTER 2018-04-07 09:20 | Outpatient (CLI) | payer OTHER | END 2018-04-07 09:21 | disposition left against medical advice (07) | LOC: AMBL 09:20 | PROVIDERS: ATTEND Emergency Medicine | DX: M79.605 Pain in left leg (principal); M79.604 Pain in right leg; M25.552 Pain in left hip; M25.551 Pain in right hip ==

== ENCOUNTER 2018-04-22 08:53 | Outpatient (CLI) ==
--- NOTE | 2018-04-22 09:56 | MRI ---
EXAM: MRI right knee without contrast. HISTORY: Pain. Chronic. Lateral side. No right knee surgery reported. TECHNIQUE: Using a local extremity coil on a high field strength magnet multiplanar multisequence ma gnet resonance imaging performed of the right knee without intravenous or intra-articular gadolinium contrast. COMPARISON: Four view plain film examination right knee 03/21/2018. FINDINGS: Within the medial compartment there is some fraying of the inner margin medial meniscus wi thout discrete surfacing extensive chondrosis with cartilage attenuation/ulceration over the weightbe aring medial compartment most evident over the medial femoral condyle with patchy areas of subchondra l remodeling/edema. Productive osteophyte formation. Within the lateral compartment the lateral meniscus is intact without discrete surfacing meniscal tea r.. Approximate 11 mm area of chondrosis and cartilage ulceration over the posterior weightbearing l ateral femoral condyle. Small focus of subchondral bone marrow edema over the posterior weightbearin g rim of the lateral tibial plateau. Question area of subchondral bone marrow contusion with tiny sy bchondral fracture. Productive osteophyte formation. Within the patellofemoral compartment the patella seated. Marked patellar chondrosis/chondromalacia patella with corresponding disease over the trochlear groove. Productive osteophyte formation. Small right knee effusion. No large osteochondral loose bodies. Intact PCL fibers showing normal or ientation. Intact ACL fibers with intraligamentous ganglion formation. The intraosseous cyst/gangli on formation questionably present over the tibial spines. The extensor mechanism is intact. The med ial collateral ligament as well as lateral collateral ligament complex and posterolateral corner inta ct.. IMPRESSION: Fraying inner margin medial meniscus. Otherwise no discrete surfacing meniscal tear martir ntified. Changes of moderate to markedly severe tricompartmental osteoarthrosis. Small focus of subchondral bruce ne marrow edema over the posterior weightbearing rim of the lateral tibial plateau. Question area of subchondral bone marrow contusion with tiny subchondral fracture. Small right knee effusion. Intact cruciate ligaments. Anterior cruciate ligament intraligamentous ganglion formation. Intact collateral ligaments.
--- NOTE | 2018-04-22 12:00 | MAMMO ---
EXAM: Digital screening mammogram with tomosynthesis HISTORY: Screening COMPARISON: 12/11/2015 FINDINGS: Digital MLO and CC views of the right and left breast were performed. Tomosynthesis was performed. Computer aided detection utilized. There are scattered fibroglandular densities. There is no evidence for mass, asymmetry, distortion, or suspicious calcifications in either breast. IMPRESSION: 1. No evidence of malignancy in the right or left breast. 2. Annual screening mammogram is recommended in one year. BIRADS category 1, negative examination
== END 2018-04-22 08:54 | disposition home or self-care (01) ==
LOC: RAD 08:53
PROVIDERS: ATTEND Nurse Practitioner Family
DX: Z12.31 Encounter for screening mammogram for malignant neoplasm of breast (principal); M25.561 Pain in right knee; G89.29 Other chronic pain
CPT/HCPCS: 77067

== ENCOUNTER 2018-05-31 09:42 | Outpatient (CLI) | END 2018-05-31 09:43 | disposition home or self-care (01) | LOC: RHC-LAB 09:42 | PROVIDERS: ATTEND Nurse Practitioner Family | DX: M85.80 Other specified disorders of bone density and structure, unspecified site (principal); I10 Essential (primary) hypertension | CPT/HCPCS: 36415; 80053; 80061; 82306; 85025 ==

== ENCOUNTER 2018-07-01 08:54 | Emergency (ER) | payer OTHER ==
[2018-07-01 09:02] VITALS: BP 119/88; TEMP 97.8; BMI 30.2
[2018-07-01] MEDS ORDERED: TORADOL IM STA (09:08)
--- NOTE | 2018-07-01 09:11 | ED.PDOC ---
General ED Provider: Dr. SOFI VERAS Chief Complaint: Back Pain Stated Complaint: BACK PAIN Time Seen by Physician: 09:00 (NO INJURY SEEN WITH VANDANA) Mode of Arrival: Walk-In Information Source: Patient Exam Limitations: No limitations Primary Care [facility] Nursing and Triage Documentation Reviewed and Agree: Yes Does patient meet sepsis criteria?: No If yes, has appropriate treatment been initiated?: No System Inflammatory Response Syndrome: Not Applicable Sepsis Protocol: For patient's 13 years and over: Temp is 96.8 and below OR 101 and greater Pulse >90 BPM Resp >20/minute Acutely Altered Mental Status Are patient's symptoms suggestive of a new infection, such as: -Pneumonia -Skin, Soft Tissue -Endocarditis -UTI -Bone, Joint Infection -Implantable Device -Acute Abdominal Infection -Wound Infection -Meningitis -Blood Stream Catheter Infection -Unknown Musculoskeletal Complaint Exam - Back Pain Complaint/Exam Mechanism of Injury: Reports: No known trauma Onset/Duration: CHRONIC OUT OF PAIN MEDS Symptoms Are: Still present Timing: Intermittent Episodes Lasting: Weeks Initial Severity: Moderate Location: Reports: Discrete Character: Reports: Aching Aggravating: Reports: Lifting, Bending, Walking Alleviating: Reports: Rest, Position Associated Signs and Symptoms: Denies: Swelling, Redness, Bruising, Fever, Weakness, Numbness, Tingling, Abdominal pain, Flank pain, Bladder incontinence, Bowel incontinence, Weight loss, Pain with weight bearing Related History: Reports: Similar episode TAD Risk Factors: Reports: Hypertension, Smoking AAA Risk Factors: Reports: None, Smoking, Hypertension Cauda Equina Risk Factors: Reports: None Epidural Abcess Risk Factors: Reports: None Related Surgical History: Reports: None Focal Tenderness: No Paraspinal Muscle Tenderness: No Paraspinal Muscle Spasm: No Scoliosis: No Lordosis: No Kyphosis: No Hip Motion Testing Pain: Right Negative, Left Negative Focal Weakness: Present: None Focal Sensory Loss: Present: None (WALKING IN ED ) Gait: Present: Normal Differential Diagnoses: Strain, Sprain Review of Systems - Review Of Systems Constitutional: Reports: No symptoms Eyes: Reports: No symptoms Ears, Nose, Mouth, Throat: Reports: No symptoms Respiratory: Reports: No symptoms Cardiac: Reports: No symptoms GI: Reports: No symptoms : Reports: No symptoms Musculoskeletal: Reports: Back pain Skin: Reports: No symptoms Neurological: Reports: No symptoms Endocrine: Reports: No symptoms Hematologic/Lymphatic: Reports: No symptoms All Other Systems: Reviewed and Negative Past Medical History - Past Medical History Previously Healthy: No Endocrine: Reports: None Cardiovascular: Reports: Hypertension Respiratory: Reports: COPD Hematological: Reports: Anemia Gastrointestinal: Reports: GERD, Liver (hepc), Other (h/o HEP c s/p treatments) Genitourinary: Reports: Kidney stones Neuro/Psych: Reports: Anxiety, Depression Musculoskeletal: Reports: Arthritis, Back Pain Cancer: Reports: None Last Menstrual Period: n/a Other Pertinent Past Medical History: htn ks arth chronic back hepc - Surgical History General Surgical History: Reports: Hysterectomy, Appendectomy, Cholecystectomy, Back Surgery (LUMBAR) - Family History Family History: Reports: None - Social History Smoking Status: Former smoker Hx Substance Use: No Alcohol Screening: None Physical Exam - Physical Exam Appearance: Well-appearing, No pain distress, Well-nourished Eyes: ONDINA, EOMI, Conjunctiva clear ENT: Ears normal, Nose normal, Oropharynx normal Respiratory: Airway patent, Breath sounds clear, Breath sounds equal, Respirations nonlabored Cardiovascular: RRR, Pulses normal, No rub, No murmur GI/: Soft, Nontender, No masses, Bowel sounds normal, No Organomegaly Musculoskeletal: Normal strength, ROM intact, No edema, No calf tenderness Skin: Warm, Dry, Normal color Neurological: Sensation intact, Motor intact, Reflexes intact, Cranial nerves intact, Alert, Oriented Psychiatric: Affect appropriate, Mood appropriate Critical Care Note - Critical Care Note Total Time (mins): 0 Course - Course Orders, Labs, Meds: Orders Category Date Time Status Ketorolac Tromethamine [Toradol] MEDS 07/01/18 09:08 Stat 60 mg IM ONCE STA Medications Discontinued Medications Generic Name Dose Route Start Last Admin Trade Name Freq PRN Reason Stop Dose Admin Ketorolac Tromethamine 60 mg 07/01/18 09:08 Toradol IM 07/01/18 09:09 ONCE STA Vital Signs: Temp Pulse Resp BP Pulse Ox 07/01/18 09:00 97.8 F 101 H 20 119/88 100 Departure - Departure Time of Disposition: 09:11 (PAIN MEDS WRITTEN FOR THE PT, MRI DISCUSSED FOLLOW UP WITH ORTHO AND PMD STRESSED ) Disposition: HOME SELF-CARE Discharge Problem: Low back pain Qualifiers: Chronicity: chronic Back pain laterality: midline Sciatica presence: without sciatica Qualified Code(s): M54.5 - Low back pain; G89.29 - Other chronic pain Instructions: Back Pain (ED) Condition: Good Pt referred to PMD for follow-up: Yes IPMP verified?: No Additional Instructions: Please call your Family Physician as soon as possible to schedule a follow-up appointment. Prescriptions: Hydrocodone/Acetaminophen [[place] 10-325 Tablet] 1 each PO Q8HR #10 tablet Allergies/Adverse Reactions: Allergies morphine Allergy (Intermediate, Verified 07/01/18 09:03) itching tizanidine HCl [From Zanaflex] Adverse Reaction (Verified 07/01/18 09:03) hallucinations Home Medications: Ambulatory Orders Hydrocodone/Acetaminophen [[place] 10-325 Tablet] 1 each PO Q8HR #10 tablet
== END 2018-07-01 09:40 | disposition home or self-care (01) ==
LOC: ED 08:54
DX: M54.5 Low back pain (principal); G89.29 Other chronic pain; I10 Essential (primary) hypertension; F17.210 Nicotine dependence, cigarettes, uncomplicated
CPT/HCPCS: 96372; 99283

== ENCOUNTER 2018-07-26 08:47 | Emergency (ER) ==
[2018-07-26 08:57] VITALS: BP 131/90; TEMP 99.1; BMI 31.4
--- NOTE | 2018-07-26 09:16 | ED.PDOC ---
General ED Provider: Dr. AARON MEIER Chief Complaint: Extremity Pain/Injury Stated Complaint: Back and Knee Pain. Bothered chronically with pain in her bilateral lower lumbar spine, legs and knees when she walks. Very painful ambulation which has been worsening after her spine surgery several years ago. Was at ER several weeks ago and received IM Toradol and Rx [place] which has helped to alleviate pain. Upcoming appointment with pain management and has been told she may need and MRI scan of LS spine as physician speculative pain may be related to previous surgery. patient states she is having pain in her legs when she walks. states she was here 2-3 weeks ago for the same thing and was given a shot. Time Seen by Physician: 09:00 Mode of Arrival: Walk-In Information Source: Patient Exam Limitations: No limitations Primary Care Provider: YESSENIA RAY[facility] Nursing and Triage Documentation Reviewed and Agree: Yes Does patient meet sepsis criteria?: No System Inflammatory Response Syndrome: Not Applicable Sepsis Protocol: For patient's 13 years and over: Temp is 96.8 and below OR 101 and greater Pulse >90 BPM Resp >20/minute Acutely Altered Mental Status Are patient's symptoms suggestive of a new infection, such as: -Pneumonia -Skin, Soft Tissue -Endocarditis -UTI -Bone, Joint Infection -Implantable Device -Acute Abdominal Infection -Wound Infection -Meningitis -Blood Stream Catheter Infection -Unknown Musculoskeletal Complaint Exam - Lower Extremity Complaint/Exam Location of Pain: Reports: Right, Left, Leg, Knee Mechanism of Injury: Reports: No known trauma Symptoms Are: Still present Onset of Pain: Reports: Prior to arrival Initial Severity: Moderate Current Severity: Mild Location: Reports: Diffuse Character: Reports: Dull, Aching Alleviating: Reports: Rest, OTC meds Aggravating: Reports: Movement, Weight bearing, Prolonged standing Able to Bear Weight: Yes Associated Signs and Symptoms: Denies: Swelling, Redness, Bruising, Fever, Weakness, Numbness, Tingling Related History: Reports: Similar episode DVT Risk Factors: Reports: None Septic Arthritis Risk Factors: Reports: None Related Surgical History: Reports: Back Surgery Mauricio's Sign Present: No Differential Diagnoses: Arthritis, Strain Review of Systems - Review Of Systems Constitutional: Reports: No symptoms Eyes: Reports: No symptoms Ears, Nose, Mouth, Throat: Reports: No symptoms Respiratory: Reports: No symptoms Cardiac: Reports: No symptoms GI: Reports: No symptoms : Reports: No symptoms Musculoskeletal: Reports: No symptoms Skin: Reports: No symptoms Neurological: Reports: No symptoms Endocrine: Reports: No symptoms Hematologic/Lymphatic: Reports: No symptoms All Other Systems: Reviewed and Negative Past Medical History - Past Medical History Previously Healthy: No Endocrine: Reports: None Cardiovascular: Reports: Hypertension Respiratory: Reports: COPD Hematological: Reports: Anemia Gastrointestinal: Reports: GERD, Liver (hepc), Other (h/o HEP c s/p treatments) Genitourinary: Reports: Kidney stones Neuro/Psych: Reports: Anxiety, Depression Musculoskeletal: Reports: Arthritis, Back Pain Cancer: Reports: None Last Menstrual Period: n/a Other Pertinent Past Medical History: htn ks arth chronic back hepc - Surgical History General Surgical History: Reports: Hysterectomy, Appendectomy, Cholecystectomy, Back Surgery (LUMBAR) - Family History Family History: Reports: None - Social History Smoking Status: Former smoker Hx Substance Use: No Alcohol Screening: None Physical Exam - Physical Exam Appearance: Well-appearing, No pain distress, Well-nourished Ill-appearing: None Pain Distress: None Eyes: ONDINA, EOMI, Conjunctiva clear ENT: Ears normal, Nose normal, Oropharynx normal Respiratory: Airway patent, Breath sounds clear, Breath sounds equal, Respirations nonlabored Cardiovascular: RRR, Pulses normal, No rub, No murmur GI/: Soft, Nontender, No masses, Bowel sounds normal, No Organomegaly Musculoskeletal: Normal strength, ROM intact, No edema, No calf tenderness Skin: Warm, Dry, Normal color Neurological: Sensation intact, Motor intact, Reflexes intact, Cranial nerves intact, Alert, Oriented Psychiatric: Affect appropriate, Mood appropriate Critical Care Note - Critical Care Note Total Time (mins): 0 Course - Course Hematology/Chemistry: 07/26/18 09:45 07/26/18 09:45 Orders, Labs, Meds: Lab Review 07/26/18 07/26/18 09:45 09:45 WBC 10.55 H RBC 3.79 L Hgb 12.0 Hct 35.4 L MCV 93.4 MCH 31.7 H MCHC 33.9 RDW Coeff of Riki 13.2 Plt Count 143 Immature Gran % (Auto) 0.5 Neut % (Auto) 71.1 Lymph % (Auto) 22.3 Irion % (Auto) 6.0 Eos % (Auto) 0.1 Baso % (Auto) 0.0 Immature Gran # (Auto) 0.1 Neut # (Auto) 7.5 H Lymph # (Auto) 2.4 Irion # (Auto) 0.6 Eos # (Auto) 0.0 Baso # (Auto) 0.0 Sodium 142 Potassium 3.06 L Chloride 107 Carbon Dioxide 26.3 Anion Gap 11.76 BUN 15 Creatinine 0.67 Estimated GFR (MDRD) 88.00 BUN/Creatinine Ratio 22.38 Glucose 98.3 Calcium 9.1 Total Bilirubin 0.5 AST 46 H ALT 41 H Alkaline Phosphatase 163 H Total Protein 8.0 Albumin 4.2 Globulin 3.8 Albumin/Globulin Ratio 1.11 Orders Category Date Time Status CBC W/ AUTO DIFF Stat LAB 07/26/18 09:45 Completed CMP [COMPREHENSIVE METABOLIC PANEL] Stat LAB 07/26/18 09:45 Completed Ketorolac Tromethamine [Toradol] MEDS 07/26/18 10:35 Stat 30 mg IM ONCE STA Potassium Chloride [K-Dur] MEDS 07/26/18 10:35 Stat 20 meq PO ONCE STA Medications Generic Name Dose Route Start Last Admin Trade Name Freq PRN Reason Stop Dose Admin Ketorolac Tromethamine 30 mg 07/26/18 10:35 Toradol IM 07/26/18 10:36 ONCE STA Potassium Chloride 20 meq 07/26/18 10:35 K-Dur PO 07/26/18 10:36 ONCE STA Vital Signs: Temp Pulse Resp BP Pulse Ox 07/26/18 08:51 99.1 F 90 20 131/90 98 Departure - Departure Time of Disposition: 11:40 Disposition: HOME SELF-CARE Discharge Problem: Bilateral leg pain, Spine pain, lumbar, Knee pain, bilateral, Osteoarthritis Instructions: Chronic Back Pain (ED), Lower Back Exercises (ED), Knee Pain (ED) , Osteoarthritis (ED) Condition: Good Pt referred to PMD for follow-up: Yes IPMP verified?: Yes Additional Instructions: Recommend follow up with PCP Ana María to have additional testing as needed including a follow up MRI abdomen to re evaluate Lt RENAL abnormality as noted on scan in Nov 2017. Seek follow up care with urology as recommended. Take KCL twice daily and have PCP re check in 1 week.Take Rx Med as recommended0 [place] 5/ 325 take 1 every 6 hrs as needed Allergies/Adverse Reactions: Allergies morphine Allergy (Intermediate, Verified 07/26/18 08:57) itching tizanidine HCl [From Zanaflex] Adverse Reaction (Verified 07/26/18 08:57) hallucinations Home Medications: Ambulatory Orders Hydrocodone Bit/Acetaminophen [[place] 5-325] 1 each PO Q4HR PRN #20 tablet Disposition Discussed With: Patient ED Physician Progress Note ED Physician Progress Note: [] 07/26/18 09:58 Awaiting results of serum chem testing/assessing renal function to determine appropriated pain meds to administer(prev GFR 59) in May 2018 07/26/18 10:36 Results of lab reviewed and discussed with patient. Recommend follow up with PCP Ana María to have additional testing as needed including a follow up MRI abdomen to re evaluate Lt RENAL abnormality as noted on scan in Nov 2017. 07/26/18 10:40 Seek follow up care with urology as recommended. 07/26/18 10:41Will address low Potassium with supplement now plus redosing at home twice daily. Discuss with PCP later this week Take Rx Med as recommended0 [place] 5/325 take 1 every 6 hrs as needed
[2018-07-26] MEDS ORDERED: TORADOL IM STA (10:35)
[2018-07-26] MEDS ORDERED: K-DUR PO STA (10:35)
== END 2018-07-26 11:23 | disposition home or self-care (01) ==
LOC: ED 08:47
DX: M54.5 Low back pain (principal); M79.605 Pain in left leg; M79.604 Pain in right leg; M25.562 Pain in left knee; M25.561 Pain in right knee; G89.29 Other chronic pain; M19.90 Unspecified osteoarthritis, unspecified site; E87.6 Hypokalemia; I10 Essential (primary) hypertension; Z87.442 Personal history of urinary calculi
CPT/HCPCS: 36415; 80053; 85025; 96372; 99283

== ENCOUNTER 2018-08-01 07:57 | Outpatient (CLI) ==
--- NOTE | 2018-08-01 10:10 | DI ---
EXAM: Double contrast esophagram. History: Choking and dysphagia. Technique: Patient was given gas crystals. Pacer was then given oral barium and multiple spot films of the esophagus and gastroesophageal junction were obtained. There is projections. Findings: The course and caliber of the esophagus are within normal limits. No mucosal lesions or f illing defects identified. The gastroesophageal junction is patent. No hiatal hernia. No gastroesop hageal reflux was identified. Impression: Unremarkable esophagram.
== END 2018-08-01 07:58 | disposition home or self-care (01) ==
LOC: RAD 07:57
PROVIDERS: ATTEND Nurse Practitioner Family
DX: T17.308A Unspecified foreign body in larynx causing other injury, initial encounter (principal); R13.10 Dysphagia, unspecified

== ENCOUNTER 2018-08-12 07:58 | Emergency (ER) ==
[2018-08-12 08:07] VITALS: BP 106/68; TEMP 97.5; BMI 30.2
--- NOTE | 2018-08-12 08:21 | ED.PDOC ---
General ED Provider: Dr. SOFI VERAS Chief Complaint: Non-specific Complaint Stated Complaint: leg pain Time Seen by Physician: 08:00 Mode of Arrival: Walk-In Information Source: Patient Exam Limitations: No limitations Primary Care Provider: ERIC LOZANO Nursing and Triage Documentation Reviewed and Agree: Yes Does patient meet sepsis criteria?: No System Inflammatory Response Syndrome: Not Applicable Sepsis Protocol: For patient's 13 years and over: Temp is 96.8 and below OR 101 and greater Pulse >90 BPM Resp >20/minute Acutely Altered Mental Status Are patient's symptoms suggestive of a new infection, such as: -Pneumonia -Skin, Soft Tissue -Endocarditis -UTI -Bone, Joint Infection -Implantable Device -Acute Abdominal Infection -Wound Infection -Meningitis -Blood Stream Catheter Infection -Unknown Musculoskeletal Complaint Exam - Lower Extremity Complaint/Exam Mechanism of Injury: Reports: No known trauma Onset/Duration: chronic Symptoms Are: Still present Initial Severity: Mild Current Severity: Mild Location: Reports: Discrete Character: Reports: Dull Alleviating: Reports: Rest Aggravating: Reports: Movement Able to Bear Weight: Yes Associated Signs and Symptoms: Denies: Swelling, Redness, Bruising, Fever, Weakness, Numbness, Tingling Related History: Reports: Similar episode DVT Risk Factors: Reports: None Septic Arthritis Risk Factors: Reports: None Review of Systems - Review Of Systems Constitutional: Reports: No symptoms Eyes: Reports: No symptoms Ears, Nose, Mouth, Throat: Reports: No symptoms Respiratory: Reports: No symptoms Cardiac: Reports: No symptoms GI: Reports: No symptoms : Reports: No symptoms Musculoskeletal: Reports: Joint pain (leg pain) Skin: Reports: No symptoms Neurological: Reports: No symptoms Endocrine: Reports: No symptoms Hematologic/Lymphatic: Reports: No symptoms All Other Systems: Reviewed and Negative Past Medical History - Past Medical History Previously Healthy: No Endocrine: Reports: None Cardiovascular: Reports: Hypertension Respiratory: Reports: COPD Hematological: Reports: Anemia Gastrointestinal: Reports: GERD, Liver (hepc), Other (h/o HEP c s/p treatments) Genitourinary: Reports: Kidney stones Neuro/Psych: Reports: Anxiety, Depression Musculoskeletal: Reports: Arthritis, Back Pain Cancer: Reports: None Last Menstrual Period: NA Other Pertinent Past Medical History: htn ks arth chronic back hepc - Surgical History General Surgical History: Reports: Hysterectomy, Appendectomy, Cholecystectomy, Back Surgery (LUMBAR) - Family History Family History: Reports: None - Social History Smoking Status: Former smoker Hx Substance Use: No Alcohol Screening: None Physical Exam - Physical Exam Appearance: Well-appearing, No pain distress, Well-nourished Eyes: ONDINA, EOMI, Conjunctiva clear ENT: Ears normal, Nose normal, Oropharynx normal Respiratory: Airway patent, Breath sounds clear, Breath sounds equal, Respirations nonlabored Cardiovascular: RRR, Pulses normal, No rub, No murmur GI/: Soft, Nontender, No masses, Bowel sounds normal, No Organomegaly Musculoskeletal: Normal strength, ROM intact, No edema, No calf tenderness Skin: Warm, Dry, Normal color Neurological: Sensation intact, Motor intact, Reflexes intact, Cranial nerves intact, Alert, Oriented Psychiatric: Affect appropriate, Mood appropriate Critical Care Note - Critical Care Note Total Time (mins): 0 Course - Course Orders, Labs, Meds: Orders Category Date Time Status Ketorolac Tromethamine [Toradol] MEDS 08/12/18 08:23 Discontinued 30 mg IM ONCE STA Medications Discontinued Medications Generic Name Dose Route Start Last Admin Trade Name Bertha PRN Reason Stop Dose Admin Ketorolac Tromethamine 30 mg 08/12/18 08:23 Toradol IM 08/12/18 08:24 ONCE STA Vital Signs: Temp Pulse Resp BP Pulse Ox 08/12/18 08:03 97.5 F L 99 H 16 106/68 98 Departure - Departure Time of Disposition: 08:29 (chronic pain issue will see orth 0n 08/18/18) Disposition: HOME SELF-CARE Discharge Problem: Leg pain Qualifiers: Laterality: right Qualified Code(s): M79.604 - Pain in right leg Instructions: Leg Pain (ED) Condition: Good Pt referred to PMD for follow-up: Yes IPMP verified?: No Additional Instructions: FOLLOW UP WITH ORTHO NEXT WEEK SCHEDULED. Prescriptions: Hydrocodone/Acetaminophen [[place] 10-325 Tablet] 1 each PO Q8HR #10 tablet Allergies/Adverse Reactions: Allergies morphine Allergy (Intermediate, Verified 08/12/18 08:02) itching tizanidine HCl [From Zanaflex] Adverse Reaction (Verified 08/12/18 08:02) hallucinations Home Medications: Ambulatory Orders Hydrocodone/Acetaminophen [[place] 10-325 Tablet] 1 each PO Q8HR #10 tablet Disposition Discussed With: Patient
[2018-08-12] MEDS ORDERED: TORADOL IM STA (08:23)
== END 2018-08-12 08:45 | disposition home or self-care (01) ==
LOC: ED 07:58
DX: M79.661 Pain in right lower leg (principal)
CPT/HCPCS: 96372; 99282

== ENCOUNTER 2018-08-25 08:27 | Emergency (ER) | payer OTHER ==
[2018-08-25 08:33] VITALS: BP 152/94; TEMP 98.9; BMI 30.7
--- NOTE | 2018-08-25 08:43 | ED.PDOC ---
General ED Provider: Dr. SOFI VERAS Chief Complaint: Non-specific Complaint Stated Complaint: chronic knee pain bilateral no injury Time Seen by Physician: 08:42 (seen with Ava at all times seen pt for same issue before ) Mode of Arrival: Walk-In Information Source: Patient Exam Limitations: No limitations Primary Care Provider: ERIC LOZANO Nursing and Triage Documentation Reviewed and Agree: Yes Does patient meet sepsis criteria?: No If yes, has appropriate treatment been initiated?: No System Inflammatory Response Syndrome: Not Applicable (negative trauma has not been able to have follow up yet) Sepsis Protocol: For patient's 13 years and over: Temp is 96.8 and below OR 101 and greater Pulse >90 BPM Resp >20/minute Acutely Altered Mental Status Are patient's symptoms suggestive of a new infection, such as: -Pneumonia -Skin, Soft Tissue -Endocarditis -UTI -Bone, Joint Infection -Implantable Device -Acute Abdominal Infection -Wound Infection -Meningitis -Blood Stream Catheter Infection -Unknown Musculoskeletal Complaint Exam - Knee Pain Complaint/Exam Mechanism of Injury: Reports: No known trauma Onset/Duration: chronic Symptoms Are: Still present Onset of Pain: Reports: Weeks Initial Severity: Moderate Current Severity: Mild Location: Reports: Discrete Character: Reports: Aching Alleviating: Reports: Rest, Position Aggravating: Reports: Movement Associated Signs and Symptoms: Denies: Swelling, Redness, Bruising, Fever, Weakness, Numbness, Tingling Able to Bear Weight: Yes Septic Arthritis Risk Factors: Reports: Extremes of age Gout Risk Factors: Reports: >40 years old Related Surgical History: Denies: Other Orthopedic Surgery Knee Findings: Absent: Swelling, Ecchymosis, Abnormal contour, Rotation, Ligamentous instability, Laceration, Erythema, Warmth Tenderness: Present: Pre-patellar Saroj Test Positive: No Anthony Test Positive: No Limited Range of Motion: Present: Active, Passive, Flexion, Extension, Patellar apprehension Differential Diagnoses: Closed Fracture, Internal Derangement, Sprain, Strain Review of Systems - Review Of Systems Constitutional: Reports: No symptoms Eyes: Reports: No symptoms Ears, Nose, Mouth, Throat: Reports: No symptoms Respiratory: Reports: No symptoms Cardiac: Reports: No symptoms GI: Reports: No symptoms : Reports: No symptoms Musculoskeletal: Reports: Joint pain (knee pain) Skin: Reports: No symptoms Neurological: Reports: No symptoms Endocrine: Reports: No symptoms Hematologic/Lymphatic: Reports: No symptoms All Other Systems: Reviewed and Negative Past Medical History - Past Medical History Previously Healthy: No Endocrine: Reports: None Cardiovascular: Reports: Hypertension Respiratory: Reports: COPD Hematological: Reports: Anemia Gastrointestinal: Reports: GERD, Liver (hepc), Other (h/o HEP c s/p treatments) Genitourinary: Reports: Kidney stones Neuro/Psych: Reports: Anxiety, Depression Musculoskeletal: Reports: Arthritis, Back Pain Cancer: Reports: None Last Menstrual Period: n/a Other Pertinent Past Medical History: htn ks arth chronic back hepc - Surgical History General Surgical History: Reports: Hysterectomy, Appendectomy, Cholecystectomy, Back Surgery (LUMBAR) - Family History Family History: Reports: None - Social History Smoking Status: Former smoker Hx Substance Use: No Alcohol Screening: None Physical Exam - Physical Exam Appearance: Well-appearing, No pain distress, Well-nourished Eyes: ONDINA, EOMI, Conjunctiva clear ENT: Ears normal, Nose normal, Oropharynx normal Respiratory: Airway patent, Breath sounds clear, Breath sounds equal, Respirations nonlabored Cardiovascular: RRR, Pulses normal, No rub, No murmur GI/: Soft, Nontender, No masses, Bowel sounds normal, No Organomegaly Musculoskeletal: Normal strength, ROM intact, No edema, No calf tenderness Skin: Warm, Dry, Normal color Neurological: Sensation intact, Motor intact, Reflexes intact, Cranial nerves intact, Alert, Oriented Psychiatric: Affect appropriate, Mood appropriate Critical Care Note - Critical Care Note Total Time (mins): 0 Course - Course Vital Signs: Temp Pulse Resp BP Pulse Ox 08/25/18 08:30 98.9 F 85 16 152/94 H 99 Departure - Departure Time of Disposition: 09:05 Disposition: HOME SELF-CARE Discharge Problem: Knee pain, bilateral Qualifiers: Chronicity: acute Qualified Code(s): M25.561 - Pain in right knee; M25.562 - Pain in left knee Instructions: Knee Pain (ED), Arthralgia (ED) Condition: Good Pt referred to PMD for follow-up: Yes IPMP verified?: No Additional Instructions: Please call your Family Physician as soon as possible to schedule a follow-up appointment. Allergies/Adverse Reactions: Allergies morphine Allergy (Intermediate, Verified 08/25/18 08:36) itching tizanidine HCl [From Zanaflex] Adverse Reaction (Verified 08/25/18 08:36) hallucinations Home Medications: Ambulatory Orders Hydrocodone/Acetaminophen [[place] 10-325 Tablet] 1 each PO Q8HR #10 tablet
== END 2018-08-25 08:48 | disposition home or self-care (01) ==
LOC: ED 08:27
DX: M25.562 Pain in left knee (principal); M25.561 Pain in right knee; G89.29 Other chronic pain
CPT/HCPCS: 99282

== ENCOUNTER 2018-09-05 11:21 | Outpatient (CLI) | payer OTHER | END 2018-09-05 11:22 | disposition home or self-care (01) | LOC: RHC-LAB 11:21 | PROVIDERS: ATTEND Nurse Practitioner Family | DX: D64.9 Anemia, unspecified (principal); I10 Essential (primary) hypertension; F41.1 Generalized anxiety disorder | CPT/HCPCS: 36415; 80053; 84443; 85025 ==

== ENCOUNTER 2018-09-18 09:42 | Emergency (ER) | payer OTHER ==
[2018-09-18 09:49] VITALS: BP 142/98; TEMP 98.7; BMI 31.1
--- NOTE | 2018-09-18 10:03 | ED.PDOC ---
General ED Provider: Dr. AARON MEIER Chief Complaint: Extremity Pain/Injury Stated Complaint: CHRONIC PAIN RT HIP-LATERAL EXTENDING TO OUTER RT KNEE. PREV RX NORCO HELPED. IBUPROFEN DOES NOT HELP. SCHEDULED TO SEE ORTHOPEDIC SURGEON IN NEXT WEEK. STATED PCP WILL NOT ADDRESS HER PAIN AND REFUSED TO PRESCRIBE PAIN MEDS OTHER THAN IBUPROFEN. RATED HER PAIN 8/10. REITERATED TAHT OPOID ANALGESIC SHOULD BE USED SPARINGLY Time Seen by Physician: 10:05 Mode of Arrival: Walk-In Information Source: Patient Exam Limitations: No limitations Primary Care Provider: ERIC LOZANO Nursing and Triage Documentation Reviewed and Agree: Yes Does patient meet sepsis criteria?: No System Inflammatory Response Syndrome: Not Applicable Sepsis Protocol: For patient's 13 years and over: Temp is 96.8 and below OR 101 and greater Pulse >90 BPM Resp >20/minute Acutely Altered Mental Status Are patient's symptoms suggestive of a new infection, such as: -Pneumonia -Skin, Soft Tissue -Endocarditis -UTI -Bone, Joint Infection -Implantable Device -Acute Abdominal Infection -Wound Infection -Meningitis -Blood Stream Catheter Infection -Unknown Musculoskeletal Complaint Exam - Hip/Pelvis Complaint/Exam Location of Pain: Reports: Right Mechanism of Injury: Reports: No known trauma Onset/Duration: LONG STANDING Symptoms Are: Still present Initial Severity: Severe Current Severity: Moderate Location: Reports: Discrete, Radiating Character: Reports: Aching, Throbbing, Spasmodic, Stiffness Aggravating: Reports: Movement, Weight bearing Alleviating: Reports: Rest Associated Signs and Symptoms: Reports: Knee pain. Denies: Swelling, Redness, Bruising, Fever, Weakness, Dizziness, Syncope, Abdominal pain Related History: Reports: Similar episode Able to Bear Weight: Yes Septic Arthritis Risk Factors: Reports: None Range of Motion Limited In: Present: Flexion, Abduction, Internal rotation, External rotation NV Bundle Intact Distal to Injury: Yes Differential Diagnoses: Arthritis, Bursitis Review of Systems - Review Of Systems Constitutional: Reports: No symptoms Eyes: Reports: No symptoms Ears, Nose, Mouth, Throat: Reports: No symptoms Respiratory: Reports: No symptoms Cardiac: Reports: No symptoms GI: Reports: No symptoms : Reports: No symptoms Musculoskeletal: Reports: No symptoms, Joint pain Skin: Reports: No symptoms Neurological: Reports: No symptoms Endocrine: Reports: No symptoms Hematologic/Lymphatic: Reports: No symptoms All Other Systems: Reviewed and Negative Past Medical History - Past Medical History Previously Healthy: No Endocrine: Reports: None Cardiovascular: Reports: Hypertension Respiratory: Reports: COPD Hematological: Reports: Anemia Gastrointestinal: Reports: GERD, Liver (hepc), Other (h/o HEP c s/p treatments) Genitourinary: Reports: Kidney stones Neuro/Psych: Reports: Anxiety, Depression Musculoskeletal: Reports: Arthritis, Back Pain Cancer: Reports: None Last Menstrual Period: na Other Pertinent Past Medical History: htn ks arth chronic back hepc - Surgical History General Surgical History: Reports: Hysterectomy, Appendectomy, Cholecystectomy, Back Surgery (LUMBAR) - Family History Family History: Reports: None - Social History Smoking Status: Former smoker Hx Substance Use: No Alcohol Screening: None - Immunizations Tetanus Shot up to Date: Yes Physical Exam - Physical Exam Appearance: Well-appearing, No pain distress, Well-nourished Eyes: ONDINA, EOMI, Conjunctiva clear ENT: Ears normal, Nose normal, Oropharynx normal Respiratory: Airway patent, Breath sounds clear, Breath sounds equal, Respirations nonlabored Cardiovascular: RRR, Pulses normal, No rub, No murmur GI/: Soft, Nontender, No masses, Bowel sounds normal, No Organomegaly Musculoskeletal: Normal strength, No edema, No calf tenderness, Limited ROM (RT HIP DUE TO PAIN AND LAT TROCHANTERIC TENDERNESS) Skin: Warm, Dry, Normal color Neurological: Sensation intact, Motor intact, Reflexes intact, Cranial nerves intact, Alert, Oriented Psychiatric: Affect appropriate, Mood appropriate Interpretation - Radiology Interpretation Radiology Interpretation By: Radiologist Radiology Results: Positive Xray Comments: MOD OA HIP Re-Evaluation - Re-Evaluation Time of Re-Evaluation: 11:30 Status: Improved Vital Signs Stable: Yes Appearance: NAD Lungs: Clear Skin: Warm and Dry Neuro: Alert and Oriented X3 CV: RRR Critical Care Note - Critical Care Note Total Time (mins): 0 Course - Course Orders, Labs, Meds: Orders Category Date Time Status Ketorolac Tromethamine [Toradol] MEDS 09/18/18 10:50 Discontinued 30 mg IM ONCE STA Methylprednisolone Acetate [Depo-Medrol] MEDS 09/18/18 10:53 Discontinued 40 mg IM ONCE STA HIP, RIGHT 2 VIEWS Stat RADS 09/18/18 10:47 Completed Medications Discontinued Medications Generic Name Dose Route Start Last Admin Trade Name Freq PRN Reason Stop Dose Admin Ketorolac Tromethamine 30 mg 09/18/18 10:50 09/18/18 11:05 Toradol IM 09/18/18 10:51 30 mg ONCE STA Administration Methylprednisolone Acetate 40 mg 09/18/18 10:53 09/18/18 11:04 Depo-Medrol IM 09/18/18 10:54 40 mg ONCE STA Administration Vital Signs: Temp Pulse Resp BP Pulse Ox 09/18/18 09:44 98.7 F 87 16 142/98 H 98 Departure - Departure Time of Disposition: 11:30 Disposition: HOME SELF-CARE Discharge Problem: OA (osteoarthritis) of hip, Trochanteric bursitis of right hip Instructions: Hip Bursitis (ED), Osteoarthritis (ED) Condition: Good Pt referred to PMD for follow-up: Yes (1 WEEK) IPMP verified?: No Additional Instructions: TAKE TORADOL FOR PAIN NEEDED tAKE NORCO FOR SEVERE PAIN ONLY STOP IBUPROFEN APPLY ICE PACK TO HIP FOR 20 MIN TWICE DAILY KEEP APT WITH ORTHOPEDIC SURGEON Prescriptions: Hydrocodone/Acetaminophen [[place] 5-325 Tablet] 1 each PO Q6HR PRN #10 tablet PRN Reason: severe rt hip pain Ketorolac Tromethamine [Toradol] 10 mg PO Q6H PRN #20 tablet PRN Reason: HIP PAIN Allergies/Adverse Reactions: Allergies morphine Allergy (Intermediate, Verified 09/18/18 09:51) itching tizanidine HCl [From Zanaflex] Adverse Reaction (Verified 09/18/18 09:51) hallucinations Home Medications: Ambulatory Orders Hydrocodone/Acetaminophen [[place] 5-325 Tablet] 1 each PO Q6HR PRN #10 tablet 03/02 Ketorolac Tromethamine [Toradol] 10 mg PO Q6H PRN #20 tablet 09/18/18 Disposition Discussed With: Patient (EXPLAINED SUSPECTED ETIOLOGY OF HER PAIN AND RECOMMENDED THREATMENT)
[2018-09-18] MEDS ORDERED: TORADOL IM STA (10:50)
[2018-09-18] MEDS ORDERED: DEPO-MEDROL IM STA (10:53)
--- NOTE | 2018-09-18 11:12 | DI ---
EXAM: Right knee, two-view HISTORY: Pain right hip radiating to right knee COMPARISON: 03/21/2018 FINDINGS: No fracture or dislocation. Moderate osteoarthritis right hip with joint space narrowing osteophyte formation. Degenerative change in the spine. Remodeling left pubic symphysis/pubic ramus r egion appears unchanged and may be due to old trauma. No focal soft tissue abnormality. IMPERSSION: Moderate osteoarthritis right hip.
== END 2018-09-18 11:43 | disposition home or self-care (01) ==
LOC: ED 09:42
DX: M16.11 Unilateral primary osteoarthritis, right hip (principal); M70.61 Trochanteric bursitis, right hip
CPT/HCPCS: 96372; 99283

== ENCOUNTER 2018-11-25 08:06 | Emergency (ER) ==
[2018-11-25 08:18] VITALS: BP 124/81; TEMP 98.1; BMI 33.4
--- NOTE | 2018-11-25 08:27 | ED.PDOC ---
General ED Provider: Dr. SOFI VERAS Chief Complaint: Rash Stated Complaint: rash painfull chest back Time Seen by Physician: 08:10 (seen with catalina at all times see photos) Mode of Arrival: Walk-In Information Source: Patient Exam Limitations: No limitations Primary Care Provider: ERIC LOZANO Nursing and Triage Documentation Reviewed and Agree: Yes Does patient meet sepsis criteria?: No System Inflammatory Response Syndrome: Not Applicable Sepsis Protocol: For patient's 13 years and over: Temp is 96.8 and below OR 101 and greater Pulse >90 BPM Resp >20/minute Acutely Altered Mental Status Are patient's symptoms suggestive of a new infection, such as: -Pneumonia -Skin, Soft Tissue -Endocarditis -UTI -Bone, Joint Infection -Implantable Device -Acute Abdominal Infection -Wound Infection -Meningitis -Blood Stream Catheter Infection -Unknown Skin Complaint Exam - Skin/Soft Tissue Complaint/Exam Onset/Duration: weeks of shngles Symptoms Are: Still present Timing: Constant Initial Severity: Moderate Current Severity: Moderate Character: Reports: Painful (rash) Aggravating: Reports: Touch Alleviating: Reports: None Associated Signs and Symptoms: Denies: Fever, Chills, Itching, Drainage, Bruising, Tenderness, Red streaks, Joint swelling Related History: Reports: Similar episode Related Surgical History: Reports: None Recent Exposure to Others w/Similar Symptoms: No Skin Findings: Present: Erythema Joint Tenderness Present: No Differential Diagnoses: Other (shingles ) Review of Systems - Review Of Systems Constitutional: Reports: No symptoms Eyes: Reports: No symptoms Ears, Nose, Mouth, Throat: Reports: No symptoms Respiratory: Reports: No symptoms Cardiac: Reports: No symptoms GI: Reports: No symptoms : Reports: No symptoms Musculoskeletal: Reports: No symptoms Skin: Reports: Rash (chest) Neurological: Reports: No symptoms Endocrine: Reports: No symptoms Hematologic/Lymphatic: Reports: No symptoms All Other Systems: Reviewed and Negative Past Medical History - Past Medical History Previously Healthy: No Endocrine: Reports: None Cardiovascular: Reports: Hypertension Respiratory: Reports: COPD Hematological: Reports: Anemia Gastrointestinal: Reports: GERD, Liver (hepc), Other (h/o HEP c s/p treatments) Genitourinary: Reports: Kidney stones Neuro/Psych: Reports: Anxiety, Depression Musculoskeletal: Reports: Arthritis, Back Pain Cancer: Reports: None Last Menstrual Period: n/a Other Pertinent Past Medical History: htn ks arth chronic back hepc - Surgical History General Surgical History: Reports: Hysterectomy, Appendectomy, Cholecystectomy, Back Surgery (LUMBAR) - Family History Family History: Reports: None - Social History Smoking Status: Former smoker Hx Substance Use: No Alcohol Screening: None Physical Exam - Physical Exam Appearance: Well-appearing, No pain distress, Well-nourished Eyes: ONDINA, EOMI, Conjunctiva clear ENT: Ears normal, Nose normal, Oropharynx normal Respiratory: Airway patent, Breath sounds clear, Breath sounds equal, Respirations nonlabored Cardiovascular: RRR, Pulses normal, No rub, No murmur GI/: Soft, Nontender, No masses, Bowel sounds normal, No Organomegaly Musculoskeletal: Normal strength, ROM intact, No edema, No calf tenderness Skin: Warm, Dry, Normal color Neurological: Sensation intact, Motor intact, Reflexes intact, Cranial nerves intact, Alert, Oriented Psychiatric: Affect appropriate, Mood appropriate Critical Care Note - Critical Care Note Total Time (mins): 0 Course - Course Vital Signs: Temp Pulse Resp BP Pulse Ox 11/25/18 08:07 98.1 F 75 20 124/81 97 Departure - Departure Time of Disposition: 08:26 Disposition: HOME SELF-CARE Discharge Problem: Pruritic rash Herpes zoster Qualifiers: Herpes zoster complications: without complications Qualified Code(s): B02.9 - Zoster without complications Instructions: Shingles (ED) Condition: Good Pt referred to PMD for follow-up: Yes IPMP verified?: No Additional Instructions: Please call your Family Physician as soon as possible to schedule a follow-up appointment. Allergies/Adverse Reactions: Allergies morphine Allergy (Intermediate, Verified 11/25/18 08:12) itching tizanidine HCl [From Zanaflex] Adverse Reaction (Verified 11/25/18 08:12) hallucinations Home Medications: Ambulatory Orders Meloxicam 15 mg PO DAILY #15 tablet 10/25/18 Hydrocodone/Acetaminophen [[place] 10-325 Tablet] 1 each PO Q8HR #10 tablet
== END 2018-11-25 08:41 | disposition home or self-care (01) ==
LOC: ED 08:06
DX: B02.9 Zoster without complications (principal)
CPT/HCPCS: 99282

== ENCOUNTER 2018-12-12 08:55 | Emergency (ER) | payer OTHER ==
[2018-12-12 08:59] VITALS: BP 139/94; TEMP 98.4; BMI 32.8
--- NOTE | 2018-12-12 09:43 | ED.PDOC ---
General ED Provider: Dr. SOFI VERAS Chief Complaint: Urinary Problem Stated Complaint: DYSURIA Time Seen by Physician: 09:00 Mode of Arrival: Walk-In Information Source: Patient Exam Limitations: No limitations Primary Care Provider: ERIC LOZANO Nursing and Triage Documentation Reviewed and Agree: Yes Does patient meet sepsis criteria?: No If yes, has appropriate treatment been initiated?: No System Inflammatory Response Syndrome: Not Applicable Sepsis Protocol: For patient's 13 years and over: Temp is 96.8 and below OR 101 and greater Pulse >90 BPM Resp >20/minute Acutely Altered Mental Status Are patient's symptoms suggestive of a new infection, such as: -Pneumonia -Skin, Soft Tissue -Endocarditis -UTI -Bone, Joint Infection -Implantable Device -Acute Abdominal Infection -Wound Infection -Meningitis -Blood Stream Catheter Infection -Unknown Complaint Exam - Complaint/Exam Patient Complains of: Reports: Dysuria Symptoms Are: Resolved Timing: Intermittent Initial Severity: Mild Current Severity: None Location of Pain: Reports: None Character: Reports: Burning Aggravating: Reports: None Alleviating: Reports: None Associated Signs and Symptoms: Denies: Diaphoresis, Back pain, Fever, Hematuria , Dysuria, Constipation, Blood in stool, Rectal pain, Appetite change, Nausea, Vomiting, Decreased urine output, Increased urine frequency, Increased thirst, Decreased activity, Lethargy, Abdominal Pain, Bubble bath use, Vaginal bleeding , Vaginal discharge, Genital swelling, Genital blisters, Retained foreign body Ectopic Risk Factors: Reports: None Ovarian Torsion Risk Factors: Reports: None Surgical Obstruction Risk Factors: Reports: None RH Status: Unknown Related Surgical History: Reports: None Abdominal Findings: Present: None Differential Diagnoses: UTI Review of Systems - Review Of Systems Constitutional: Reports: No symptoms Eyes: Reports: No symptoms Ears, Nose, Mouth, Throat: Reports: No symptoms Respiratory: Reports: No symptoms Cardiac: Reports: No symptoms GI: Reports: No symptoms : Reports: Dysuria Musculoskeletal: Reports: No symptoms Skin: Reports: No symptoms Neurological: Reports: No symptoms Endocrine: Reports: No symptoms Hematologic/Lymphatic: Reports: No symptoms All Other Systems: Reviewed and Negative Past Medical History - Past Medical History Previously Healthy: No Endocrine: Reports: None Cardiovascular: Reports: Hypertension Respiratory: Reports: COPD Hematological: Reports: Anemia Gastrointestinal: Reports: GERD, Liver (hepc), Other (h/o HEP c s/p treatments) Genitourinary: Reports: Kidney stones Neuro/Psych: Reports: Anxiety, Depression Musculoskeletal: Reports: Arthritis, Back Pain Cancer: Reports: None Last Menstrual Period: hysterectomy Other Pertinent Past Medical History: htn ks arth chronic back hepc - Surgical History General Surgical History: Reports: Hysterectomy, Appendectomy, Cholecystectomy, Back Surgery (LUMBAR) - Family History Family History: Reports: None - Social History Smoking Status: Former smoker Hx Substance Use: No Alcohol Screening: None Physical Exam - Physical Exam Appearance: Well-appearing, No pain distress, Well-nourished Eyes: ONDINA, EOMI, Conjunctiva clear ENT: Ears normal, Nose normal, Oropharynx normal Respiratory: Airway patent, Breath sounds clear, Breath sounds equal, Respirations nonlabored Cardiovascular: RRR, Pulses normal, No rub, No murmur GI/: Soft, Nontender, No masses, Bowel sounds normal, No Organomegaly Musculoskeletal: Normal strength, ROM intact, No edema, No calf tenderness Skin: Warm, Dry, Normal color Neurological: Sensation intact, Motor intact, Reflexes intact, Cranial nerves intact, Alert, Oriented Psychiatric: Affect appropriate, Mood appropriate Critical Care Note - Critical Care Note Total Time (mins): 0 Course - Course Orders, Labs, Meds: Lab Review 12/12/18 09:04 Urine Color Yellow Urine Clarity Clear Urine pH 5.5 Ur Specific [place] 1.020 Urine Protein Negative Urine Glucose (UA) Negative Urine Ketones Negative Urine Blood Negative Urine Nitrite Negative Urine Bilirubin Negative Urine Urobilinogen 0.2 Ur Leukocyte Esterase Negative Orders Category Date Time Status UA [URINALYSIS C & S IF INDICATED] Stat LAB 12/12/18 09:04 Completed Vital Signs: Temp Pulse Resp BP Pulse Ox 12/12/18 08:55 98.4 F 74 20 139/94 H 96 Departure - Departure Time of Disposition: 09:42 Disposition: HOME SELF-CARE Discharge Problem: Urinary symptoms Instructions: Dysuria (ED) Condition: Good Pt referred to PMD for follow-up: Yes IPMP verified?: Yes Prescriptions: Hydrocodone/Acetaminophen [[place] 10-325 Tablet] 1 each PO Q8HR #3 tablet Allergies/Adverse Reactions: Allergies morphine Allergy (Intermediate, Verified 12/12/18 09:00) itching tizanidine HCl [From Zanaflex] Adverse Reaction (Verified 12/12/18 09:00) hallucinations Home Medications: Ambulatory Orders Meloxicam 15 mg PO DAILY 11/30/18 Hydrocodone/Acetaminophen [[place] 10-325 Tablet] 1 each PO Q8HR #3 tablet
== END 2018-12-12 09:51 | disposition home or self-care (01) ==
LOC: ED 08:55
DX: R30.0 Dysuria (principal)
CPT/HCPCS: 81001; 99283

== ENCOUNTER 2018-12-29 09:17 | Outpatient (RCR) ==
--- NOTE | 2018-12-30 09:02 | RS.OPPTEV2 ---
Date of Note: 12/29/18 Visit #: 1 Number of visits approved by Insurance: n/a Date of Evaluation: 12/29/18 Payer Source: MEDICARE Surgery Performed?: No Treatment Diagnosis: lumbar radiculopathy History of Condition/Mechanism of Injury:: pt reports that she has had increasing low back pain since her back surgery a few years ago. (pt cannot tell me what kind of back surgery she had or exactly when she had surgery) Prior Level of Function.....Patient was independent with: ADL's, Self Care, Caregiving, Ambulation/Mobility, Community Integration/Access Functional Limitations: Sleep, Self Care, ADL's, Reaching, Pushing, Pulling, Lifting, Carrying, Sitting, Standing, Bending, Squatting, Ambulation, Community Access/Integration Current Subjective/complaints:: pt very anxious and unable to sit still for interview portion of eval. pt constantly rubbing RLE and moving in her chair. pt states she does not take her pain medicine hardly at all and has stopped ibuprofen because it hurts her stomach as well as has stopped gabapentin on her own. Advised pt she should take meds as prescribed by MD. Treatment Side (optional): N/A *Precautions: n/a Medical History Medical History: Hypertension, COPD Medical History Comments:: hepatitis C, GERD, depressioin, back pain , anxiety Surgical History: Lumbar Spine, Cholecystectomy, Hysterectomy Surgical History Comments:: [place] Smoking Status: Former smoker Hx Home Medications: cyclobenzaprine (only takes at night), ferosul, ketorolac ( only takes occasionally), lisinopril, lisinopril hctz, tolterodine, venlafaxine XR. pt reports has stopped ibuprofen and occasionally takes Aleve, and has stopped gabapentin (explained to pt that gabapentin is to help nerve pain and may help) Patient's Goals: decrease pain Pain Assessment - Pain Description Pain Location: lumbar spine radiating into RLE and L hip Pain Description: Burning, Radiating, Sharp, Aching Current Pain Intensity: 10 Worst Pain Intensity: 10 Functional Outcome Measure Oswestry LBP: 45 (90%) - G Codes & Severity Modifier G Codes & Modifier: n/a Source of G Code score: n/a Observation - Observation Inspection: pt with muscle tightness noted in B hamstrings as well as piriformis , difficult to fully assess due to pain Posture: Forward Head, Rounded Shoulders, Increased Thoracic Kyphosis, Decreased Lumbar Lordosis Handedness: Right Gait - Gait Pattern Gait Comments: pt amb with flexed posture. Reports cannot walk further General Range of Motion: BUE WFL's. BLE WFL's c/o pain with all ROM Muscle Strength: BUE 5/5. BLE unable to mmt due to pt high pain profile, unable to tolerate any MMT. atleast 3/5 as noted by ROM. - ROM Lumbar Flexion: Hand reach to patellae Sidebending to Left: Reach to Lateral Joint Line Sidebending to Right: Reach to Lateral Joint Line Lumbar Spine ROM Limitations: Soft Tissue Tightness, Muscle Weakness, Pain Comments: pt reports increased pain with all lumbar ROM worse pain with ext. - Strength Trunk Extension: 3+ Fair+ Trunk Flexion: 4- Good- Trunk Lateral Flexion: 4- Good- Trunk Rotation: 4- Good- - Special Tests CARMEN Test: Positive Left SLR Test: Positive Left, Positive Right Comments: unable to complete all special tests due to pt high pain profile. Palpation Palpation Findings: Tenderness, Muscle Guarding Comments:: pt jumps and cries in pain with all palpation in lumbar area, muscle guarding noted in lumbar paraspinals. Pain with palpation in area of B SI joints. Sensation - Sensation Right Upper Extremity: Intact/Normal Left Upper Extremity: Intact/Normal Right Lower Extremity: Impaired Left Lower Extremity: Impaired Comments: pt reports numbness, tingling and burning BLE Balance - Sitting Balance Static Sitting Balance: Normal Dynamic Sitting Balance: Normal - Standing Balance Static Standing Balance: Good Dynamic Standing Balance: Good - Treatment Modality: Electrical Stim Unattended Parameters/Method Applied: IFC x 20 mins at 12 Treatment Area: lumbar area Patient Position: Left Sidelying - Heat/Cryotherapy Treatment: Cryotherapy Comments:: lumbar area Interventions - Exercise/Activities/Manual Therapy Exercises/Activities: Unable to attempt due to pain level Manual Therapy: NA HOME EXERCISE PROGRAM: demonstrated gentle hamstring stretch in sitting, pt cries out stating "bebeto horse" when trying to stretch. - Charges Timed Code Treatment Minutes: 46 Total Treatment Time: 61 Procedures billed for this date of service:: eval low, estim unattended, CP EVALUATION COMPLEXITY LEVEL EVALUATION COMPLEXITY LEVEL: HISTORY: Low, EXAM OF BODY SYSTEMS: Low, CLINICAL PRESENTATION: Low, CLINICAL DECISION MAKING: Low Assessment Assessment: pt presents with low back pain radiating into BLE. pt lumbar ROM limited due to pain and muscle tightness. Difficult to complete assessment due to high pain profile. Patient Education: Home Exercise Program, Education of Plan of Care Rehab Potential: Good Short Term Goals Goal #1: pt independent with initial HEP Goal to be met by: 01/19/19 Goal #2: pt report decreased pain lumbar spine < 8/10 Goal to be met by: 01/19/19 Goal #3: pt with improved flexibility B hamstrings/piriformis Goal to be met by: 01/19/19 [employer] Goals Goal #1: pt rate pain < 5/10 Goal to be met by: 02/09/19 Goal #2: Score on Oswestry LBP scale improved to 70%. Goal to be met by: 02/09/19 Goal #3: Patient able to perform normal daily activities with less pain Goal to be met by: 02/09/19 Goal #4: pt able to sleep 4 hours without interruption from pain Goal to be met by: 02/09/19 Plan - Treatment to be Provided Procedures: Therapeutic Exercises, Therapeutic Activity, Manual Therapy, Massage , Patient Education Modalities: Electrical Stimulation, Ultrasound/Phonophoresis, Cryotherapy, Hot Packs - Treatment Plan Frequency: 2-3x a week Duration: 6 weeks Dates of [employer] Goals: 02/09/19 Expiration date of current Insurance Approval:: n/a - Treatment Code (1) Lumbar radiculopathy Code(s): M54.16 - RADICULOPATHY, LUMBAR REGION (2) Muscle weakness Code(s): M62.81 - MUSCLE WEAKNESS (GENERALIZED) (3) Muscle tightness Code(s): M62.89 - OTHER SPECIFIED DISORDERS OF MUSCLE
--- NOTE | 2019-01-04 08:54 | RS.CXNS ---
Date of scheduled appointment: 01/04/19 Type: Cancel Reason for Cancel/NS: Patient in ER this morning
--- NOTE | 2019-01-05 10:46 | RS.CXNS ---
Date of scheduled appointment: 01/05/19 Type: No Show Reason for Cancel/NS: Patient came in yesterday after she left ER and made this appt. She will only be scheduled one appt at a time due to non-attendance.
== END 2019-01-12 23:59 ==
PROVIDERS: ATTEND Nurse Practitioner
DX: M54.16 Radiculopathy, lumbar region (principal); M25.561 Pain in right knee; G89.29 Other chronic pain

== ENCOUNTER 2019-01-04 08:05 | Emergency (ER) | payer OTHER ==
[2019-01-04 08:05] VITALS: BMI 32.8
[2019-01-04 08:11] VITALS: BP 125/85; TEMP 99.6
--- NOTE | 2019-01-04 09:37 | CT ---
EXAM: CT pelvis HISTORY: Pain and numbness, left posterior, no known injury. TECHNIQUE: CT pelvis without contrast. Multiplanar images were provided. FINDINGS: Comparison may be made to 03/23/2017. Urinary bladder appears normal. Uterus is absent. The visualized bowel has normal gas pattern. The re is no inflammatory infiltration of the abdominal fat or ascites. Visualized ventral abdominal wal l is intact. The bones appear demineralized. There is moderate osteoarthritis of the hip joints slightly more not iceable on the right. There is at least moderate arthropathy of the sacroiliac joints symmetrically greater in the lower synovial portions. Degenerative disc and facet disease of the lower spine appea rs relatively severe and there is facet arthropathy encroaching upon the L4/L5 neural foramina bilate rally and disc bulging at this level. There is bony spurring narrowing the neural foramina at L5/S1. No acute fracture. IMPRESSION: 1. Relatively severe degenerative changes of the lower spine leading to neural foraminal and central canal stenosis. 2. Osteoarthritis and generalized demineralization.
--- NOTE | 2019-01-04 10:03 | ED.PDOC ---
General ED Provider: Dr. SOFI VERAS Chief Complaint: Hip Pain/Injury Stated Complaint: right hip pain Time Seen by Physician: 08:10 Mode of Arrival: Walk-In Information Source: Patient Exam Limitations: No limitations Primary Care Provider: ERIC LOZANO Nursing and Triage Documentation Reviewed and Agree: Yes Does patient meet sepsis criteria?: No If yes, has appropriate treatment been initiated?: No System Inflammatory Response Syndrome: Not Applicable Sepsis Protocol: For patient's 13 years and over: Temp is 96.8 and below OR 101 and greater Pulse >90 BPM Resp >20/minute Acutely Altered Mental Status Are patient's symptoms suggestive of a new infection, such as: -Pneumonia -Skin, Soft Tissue -Endocarditis -UTI -Bone, Joint Infection -Implantable Device -Acute Abdominal Infection -Wound Infection -Meningitis -Blood Stream Catheter Infection -Unknown Musculoskeletal Complaint Exam - Hip/Pelvis Complaint/Exam Location of Pain: Reports: Right, Left, Hip Mechanism of Injury: Reports: No known trauma Onset/Duration: chronic Symptoms Are: Still present Initial Severity: Mild Current Severity: Mild Location: Reports: Discrete Character: Reports: Dull Aggravating: Reports: None Alleviating: Reports: None Associated Signs and Symptoms: Denies: Swelling, Redness, Bruising, Fever, Weakness, Dizziness, Syncope, Abdominal pain, Knee pain Related History: Reports: Similar episode Able to Bear Weight: No Septic Arthritis Risk Factors: Reports: None Related Surgical History: Reports: None Pelvis Palpation: Stable Hip/Pelvis Findings: Absent: Extremity shortened, Swelling, Ecchymosis, Erythema , Warmth Tenderness: Present: Right, Greater Trochanter. Absent: Left, PSIS, ASIS, Pubis , Ischium NV Bundle Intact Distal to Injury: No Differential Diagnoses: Sprain, Strain Review of Systems - Review Of Systems Constitutional: Reports: No symptoms Eyes: Reports: No symptoms Ears, Nose, Mouth, Throat: Reports: No symptoms Respiratory: Reports: No symptoms Cardiac: Reports: No symptoms GI: Reports: No symptoms : Reports: No symptoms Musculoskeletal: Reports: Joint pain (right hip) Skin: Reports: No symptoms Neurological: Reports: No symptoms Endocrine: Reports: No symptoms Hematologic/Lymphatic: Reports: No symptoms All Other Systems: Reviewed and Negative Past Medical History - Past Medical History Previously Healthy: No Endocrine: Reports: None Cardiovascular: Reports: Hypertension Respiratory: Reports: COPD Hematological: Reports: Anemia Gastrointestinal: Reports: GERD, Liver (hepc), Other (h/o HEP c s/p treatments) Genitourinary: Reports: Kidney stones Neuro/Psych: Reports: Anxiety, Depression Musculoskeletal: Reports: Arthritis, Back Pain Cancer: Reports: None Last Menstrual Period: hysterectomy Other Pertinent Past Medical History: htn ks arth chronic back hepc - Surgical History General Surgical History: Reports: Hysterectomy, Appendectomy, Cholecystectomy, Back Surgery (LUMBAR) - Family History Family History: Reports: None - Social History Smoking Status: Former smoker Hx Substance Use: No Alcohol Screening: None Physical Exam - Physical Exam Appearance: Well-appearing, No pain distress, Well-nourished Eyes: ONDINA, EOMI, Conjunctiva clear ENT: Ears normal, Nose normal, Oropharynx normal Respiratory: Airway patent, Breath sounds clear, Breath sounds equal, Respirations nonlabored Cardiovascular: RRR, Pulses normal, No rub, No murmur GI/: Soft, Nontender, No masses, Bowel sounds normal, No Organomegaly Musculoskeletal: Normal strength, ROM intact, No edema, No calf tenderness Skin: Warm, Dry, Normal color Neurological: Sensation intact, Motor intact, Reflexes intact, Cranial nerves intact, Alert, Oriented Psychiatric: Affect appropriate, Mood appropriate Interpretation - Radiology Interpretation Radiology Interpretation By: Radiologist Radiology Results: No acute changes Re-Evaluation - Re-Evaluation Time of Re-Evaluation: 10:02 (explained reports with darío at all times ) Critical Care Note - Critical Care Note Total Time (mins): 0 Course - Course Orders, Labs, Meds: Orders Category Date Time Status CT PELVIS W/O CONTRAST Stat RADS 01/04/19 08:12 Completed Vital Signs: Temp Pulse Resp BP Pulse Ox 01/04/19 08:05 99.6 F 112 H 20 125/85 98 Departure - Departure Time of Disposition: 10:03 Disposition: HOME SELF-CARE Discharge Problem: Hip pain Instructions: Hip Pain (ED), Arthralgia (ED) Condition: Good Pt referred to PMD for follow-up: Yes IPMP verified?: No Additional Instructions: Please call your Family Physician as soon as possible to schedule a follow-up appointment. Prescriptions: Hydrocodone/Acetaminophen [[place] 10-325 Tablet] 1 each PO Q8HR #10 tablet Allergies/Adverse Reactions: Allergies morphine Allergy (Intermediate, Verified 01/04/19 08:14) itching tizanidine HCl [From Zanaflex] Adverse Reaction (Verified 01/04/19 08:14) hallucinations Home Medications: Ambulatory Orders Meloxicam 15 mg PO DAILY 11/30/18 Hydrocodone/Acetaminophen [[place] 10-325 Tablet] 1 each PO Q8HR #10 tablet
== END 2019-01-04 10:05 | disposition home or self-care (01) ==
LOC: ED 08:05
DX: M25.559 Pain in unspecified hip (principal); M25.552 Pain in left hip
CPT/HCPCS: 99282

== ENCOUNTER 2019-01-12 21:02 | Outpatient (CLI) | payer OTHER | END 2019-01-12 21:18 | disposition short-term general hospital (02) | LOC: AMBL 21:02 | PROVIDERS: ATTEND Family Medicine | DX: R41.82 Altered mental status, unspecified (principal); R11.2 Nausea with vomiting, unspecified; R10.9 Unspecified abdominal pain ==

== ENCOUNTER 2019-03-06 08:08 | Outpatient (CLI) ==
[2019-02-03 08:14] VITALS: BMI 32.8
--- NOTE | 2019-03-06 09:16 | DI ---
EXAM: KUB HISTORY: Lower abdominal pain. FINDINGS: The bowel gas pattern appears normal. There is no suggestion of excess fecal retention. No organomegaly or suspicious calcification. Degenerative changes of the spine and sacroiliac joints . IMPRESSION: 1. Bowel gas pattern is within normal limits.
== END 2019-03-06 08:09 | disposition home or self-care (01) ==
LOC: LAB 08:08
PROVIDERS: ATTEND Nurse Practitioner Family
DX: D64.9 Anemia, unspecified (principal); I10 Essential (primary) hypertension; R10.30 Lower abdominal pain, unspecified; R30.0 Dysuria
CPT/HCPCS: 81001; 87086; 87186

== ENCOUNTER 2019-03-21 08:21 | Outpatient (CLI) | payer OTHER ==
[2019-02-03 08:14] VITALS: BMI 32.8
--- NOTE | 2019-03-21 09:38 | DEXA ---
EXAM: Bone densitometry. History: Asymptomatic menopausal state. Findings: Evaluation of the left hip reveals a total bone mineral density of 0.810 grams per centimeter squared with T-score of negative 1.6. Evaluation of the right hip reveals a total bone mineral density of 0.768 grams per centimeter square d with T-score of negative 1.9. FRAX: 10-year probability for major osteoporotic fracture is 20.8% and 4.6% for hip fracture. Impression: Osteopenia of the bilateral hips
== END 2019-03-21 08:22 | disposition home or self-care (01) ==
LOC: RAD 08:21
PROVIDERS: ATTEND Nurse Practitioner Family
DX: Z78.0 Asymptomatic menopausal state (principal)

== ENCOUNTER 2019-03-29 08:05 | Outpatient (CLI) ==
[2019-02-03 08:14] VITALS: BMI 32.8
--- NOTE | 2019-03-29 09:29 | DI ---
EXAM: Pelvis AP view, bilateral hips lateral views HISTORY: Pelvic pain FINDINGS / IMPRESSION: Bones appear mildly demineralized. There is bilateral hip osteoarthritis, mo derately severe on the right and moderate on the left. Moderate sacroiliac joint arthropathy is note d, greater on the right. There is mild deformity of the left medial pubic bones which is probably ch ronic allowing that there has been no major recent trauma.
== END 2019-03-29 08:06 | disposition home or self-care (01) ==
LOC: RAD 08:05
PROVIDERS: ATTEND Nurse Practitioner Family
DX: R10.2 Pelvic and perineal pain (principal); R30.0 Dysuria

== ENCOUNTER 2019-04-11 09:18 | Emergency (ER) | payer OTHER ==
[2019-04-11 09:22] VITALS: BP 146/97; TEMP 99.8; BMI 33.0
--- NOTE | 2019-04-11 09:58 | ED.PDOC ---
General ED Provider: Dr. AARON MEIER Chief Complaint: Extremity Pain/Injury Stated Complaint: Rt Leg Pain. States has advanced Lumbar spine degenerative disease and has seen pain mgt specialist who is scheduled for spinal injection next week to control pain. Currently only taking Ibuprofen. Time Seen by Physician: 09:40 Mode of Arrival: Walk-In Information Source: Patient Exam Limitations: No limitations Primary Care Provider: ERIC LOZANO Nursing and Triage Documentation Reviewed and Agree: Yes Does patient meet sepsis criteria?: No System Inflammatory Response Syndrome: Not Applicable Sepsis Protocol: For patient's 13 years and over: Temp is 96.8 and below OR 101 and greater Pulse >90 BPM Resp >20/minute Acutely Altered Mental Status Are patient's symptoms suggestive of a new infection, such as: -Pneumonia -Skin, Soft Tissue -Endocarditis -UTI -Bone, Joint Infection -Implantable Device -Acute Abdominal Infection -Wound Infection -Meningitis -Blood Stream Catheter Infection -Unknown Musculoskeletal Complaint Exam - Lower Extremity Complaint/Exam Location of Pain: Reports: Right, Leg Mechanism of Injury: Reports: No known trauma Onset/Duration: several months ago Symptoms Are: Still present Onset of Pain: Reports: Prior to arrival Initial Severity: Moderate Current Severity: Moderate Location: Reports: Radiating Character: Reports: Sharp, Aching, Burning Alleviating: Reports: Rest Aggravating: Reports: None Able to Bear Weight: Yes Associated Signs and Symptoms: Reports: Numbness, Tingling Related History: Reports: Similar episode DVT Risk Factors: Reports: None Septic Arthritis Risk Factors: Reports: None Related Surgical History: Reports: None Lower Extremity Findings: Present: Swelling NV Bundle Intact Distal to Injury: Yes Mauricio's Sign Present: No Differential Diagnoses: Arthritis, Strain Review of Systems - Review Of Systems Constitutional: Reports: No symptoms Eyes: Reports: No symptoms Ears, Nose, Mouth, Throat: Reports: No symptoms Respiratory: Reports: No symptoms Cardiac: Reports: No symptoms GI: Reports: No symptoms : Reports: No symptoms Musculoskeletal: Reports: No symptoms, Joint pain Skin: Reports: No symptoms Neurological: Reports: No symptoms Endocrine: Reports: No symptoms Hematologic/Lymphatic: Reports: No symptoms All Other Systems: Reviewed and Negative Past Medical History - Past Medical History Previously Healthy: No Endocrine: Reports: None Cardiovascular: Reports: Hypertension Respiratory: Reports: COPD Hematological: Reports: Anemia Gastrointestinal: Reports: GERD, Liver (hepc), Other (h/o HEP c s/p treatments) Genitourinary: Reports: Kidney stones Neuro/Psych: Reports: Anxiety, Depression Musculoskeletal: Reports: Arthritis, Back Pain Cancer: Reports: None Last Menstrual Period: none Other Pertinent Past Medical History: htn ks arth chronic back hepc - Surgical History General Surgical History: Reports: Hysterectomy, Appendectomy, Cholecystectomy, Back Surgery (LUMBAR) - Family History Family History: Reports: None - Social History Smoking Status: Former smoker Hx Substance Use: No Alcohol Screening: None Physical Exam - Physical Exam Appearance: Well-appearing, No pain distress, Well-nourished Ill-appearing: None Pain Distress: Moderate Eyes: ONDINA, EOMI, Conjunctiva clear ENT: Ears normal, Nose normal, Oropharynx normal Respiratory: Airway patent, Breath sounds clear, Breath sounds equal, Respirations nonlabored Cardiovascular: RRR, Pulses normal, No rub, No murmur GI/: Soft, Nontender, No masses, Bowel sounds normal, No Organomegaly Musculoskeletal: Normal strength, ROM intact (increase back pain with foreard bending.), No edema, No calf tenderness, Limited ROM (RT Hip and LS spine) Skin: Warm, Dry, Normal color Neurological: Sensation intact, Motor intact (RT SLR neg in seated and supine position), Reflexes intact, Cranial nerves intact, Alert, Oriented Psychiatric: Affect appropriate, Mood appropriate Critical Care Note - Critical Care Note Total Time (mins): 0 Course - Course Orders, Labs, Meds: Orders Category Date Time Status UA [URINALYSIS C & S IF INDICATED] Stat LAB 04/11/19 10:19 Received URINE DRUG SCREEN (RAPID FOR ED) [DRUG SCREEN, URINE, LAB 04/11/19 10:19 Received RAPID] Stat Vital Signs: Temp Pulse Resp BP Pulse Ox 04/11/19 09:18 99.8 F H 90 18 146/97 H 97 Departure - Departure Time of Disposition: 10:45 Disposition: HOME SELF-CARE Discharge Problem: Leg pain, lateral, Lumbar degenerative disc disease, UTI (urinary tract infection), Osteoarthritis of right hip Instructions: Osteoarthritis (ED), Leg Pain (ED), Urinary Tract Infection in Women (ED) Condition: Good Pt referred to PMD for follow-up: Yes IPMP verified?: Yes Additional Instructions: Take meds as directed Have urine rechecked once antibiotic finished Remain on analgesic therapy See and software development specialist to evaluate your knee and back pain (Dr Rene at [facility]-back) and or (Dr Kervin [place] at [facility]) Allergies/Adverse Reactions: Allergies morphine Allergy (Intermediate, Verified 04/11/19 09:23) itching tizanidine HCl [From Zanaflex] Adverse Reaction (Verified 04/11/19 09:23) hallucinations Home Medications: Ambulatory Orders Hydrocodone Bit/Acetaminophen [[place] 5-325] 1 each PO Q6HR PRN #10 tablet Nitrofurantoin Monohyd/M-Cryst [Macrobid] 100 mg PO BID #20 capsule 04/11/19 Disposition Discussed With: Patient Complaint Exam - UTI Female Complaint/Exam Patient Complains of: Reports: Painful urination (States tx with Pyridium at clinic-symptoms still present) Onset/Duration: 3 weeks Symptoms Are: Still present Timing: Intermittent Initial Severity: Moderate Current Severity: Mild Location of Pain: Reports: Suprapubic Associated Signs and Symptoms: Denies: Fever, Chills, Flank pain, Dyspareunia, Vaginal discharge Related History: Reports: Similar episode CVA Tenderness: No Suprapubic Tenderness: Yes Differential Diagnoses: Other (UTI)
== END 2019-04-11 10:58 | disposition home or self-care (01) ==
LOC: ED 09:18
DX: M79.604 Pain in right leg (principal); M51.36 Other intervertebral disc degeneration, lumbar region; N39.0 Urinary tract infection, site not specified; M16.11 Unilateral primary osteoarthritis, right hip
CPT/HCPCS: 80306; 81001; 87086; 87186; 99283

== ENCOUNTER 2019-07-03 08:01 | Outpatient (CLI) ==
--- NOTE | 2019-07-05 09:39 | MAMMO ---
EXAM: Digital screening mammogram with Tomosynthesis HISTORY: Screening COMPARISON: 04/22/2018 FINDINGS: Digital MLO and CC views of the right and left breast were performed. Tomosynthesis was performed. Computer aided detection utilized. There are scattered fibroglandular densities. There i s no evidence for mass, asymmetry, distortion, or suspicious calcifications in either breast. IMPRESSION: 1. No evidence of malignancy in the right or left breast. 2. Annual screening mammogram is recommended in one year. BIRADS category 1, negative examination
== END 2019-07-03 08:02 | disposition home or self-care (01) ==
LOC: RAD 08:01
PROVIDERS: ATTEND Nurse Practitioner Family
DX: Z12.31 Encounter for screening mammogram for malignant neoplasm of breast (principal)

== ENCOUNTER 2024-12-27 07:08 | Observation (INO) ==
--- NOTE | 2024-12-27 07:36 | ED.PDOC ---
General ED Provider: Dr. RESHMA MCNALLY Chief Complaint: Fall Stated Complaint: Patient is a 74-year-old female who is brought by EMS after she fell at home last night was not not able to get up but did not want to call family to help her get up. She states she has noted pain in her back and lower extremities. Time Seen by Provider: 12/27/24 07:23 Mode of Arrival: Ambulance Information Source: Patient Exam Limitations: No limitations Primary Care Provider: MAKEDA ADHIKARI MD Nursing and Triage Documentation Reviewed and Agree: Yes What is Opioid Naive?: *Opioid Naive implies the patient is not already taking opioids or not chronically receiving opioids on a daily basis. *PRN dosing is not "usually" associated with tolerance. *Patients are at higher risk of over-sedation and aspiration. What is Opioid Tolerant?: *Opioid Tolerance implies less than the expected response to an opioid. *Acquired tolerance is defined by the patient taking 60mg of oral morphine daily (or equianalgesic dose of another opioid) for 1 week or more. *Often associated with chronic pain. *May take more than usual dose to achieve desired pain control. Trauma/Injury Complaint Exam Trauma Complaint/Exam Location of Pain or Injury: Reports RLE, LLE and Other (Also complains of mid back pain) Mechanism of Injury: Reports Fall (States after her legs gave out while walking into the bathroom) Onset/Duration: Last manage about 11 PM Symptoms Are: Still present Initial Severity: Severe Current Severity: Severe Character: Reports Aching Aggravating: Reports Movement Alleviating: Reports None Review of Systems Review Of Systems Constitutional: Reports Chills and Weakness [facility] Medical History Sacroiliitis M46.1 - Sacroiliitis, not elsewhere classified (ICD-10) URI with cough and congestion Mask use, present to hospital, inform them being tested for covid I have updated outpatient team regarding possible covid. Testing today. J06.9 - Acute upper respiratory infection, unspecified (ICD-10) Urinary tract infection urine auto reports: leukocytes-small nitrates-positive protein-100mg/dL blood-moderate will start Macrodantin 100mg bid x 10 days and send urine for UA will get CT abdomen/pelvis or renal ultrasound to evaluate kidneys follow up in 2 weeks, repeat UA N39.0 - Urinary tract infection, site not specified (ICD-10) Knee pain M25.569 - Pain in unspecified knee (ICD-10) Acute rhinosinusitis J01.90 - Acute sinusitis, unspecified (ICD-10) Acute upper respiratory infection J06.9 - Acute upper respiratory infection, unspecified (ICD-10) Toe pain, right M79.674 - Pain in right toe(s) (ICD-10) Gout M10.9 - Gout, unspecified (ICD-10) Hypertension I10 - Essential (primary) hypertension (ICD-10) Chronic hepatitis C B18.2 - Chronic viral hepatitis C (ICD-10) Family History (Updated 12/27/24 @ 13:42 by TEVIN VALLADARES RN) Mother , brain bleed No problems noted. FATHER , murdered No problems noted. SISTER , suicide. She hung herself No problems noted. BROTHER , found with brother AMI (acute myocardial infarction) BROTHER , found with brother No problems noted. BROTHER , I was told his heart popped. Pacemaker complications Social History Smoking and tobacco status: Former smoker Tobacco: How many years used: 10 Second hand smoke exposure: Yes Alcohol intake: never Substance use type: does not use Jihan/yarsanism: Gnosticist Special jihan needs: No Agree to transfusion: Yes Adopted: No Caregiver/support person: No Foster care: No Household members: family and none Housing: house Marital status: S SINGLE Lives independently: Yes Number of children: 2 Number of grandchildren: 6 Highest education level completed: some college, no degree Financial difficulty paying for basics: not very hard service: No long term: No Current occupational status: retired Current occupational exposures/hazards: No Previous occupational history: Factory work and [employer] Pets and animals: No Leisure activites: reading and other History of recent travel: No (to [place], Returned 2 days ago from [facility]) Sexually active: No Do you think of yourself as: straight/heterosexual Current gender identity: female Seatbelt use: always Helmet use: No Drives intoxicated or rides with intoxicated funeral car driver: No Water heater temperature set < 120 degrees: Yes Working smoke detector in home: Yes Fire extinguisher in home: Yes Carbon monoxide detector in home: Yes Firearms in home: No Surgical History back surgery 2015 History of surgery cataract Z98.890 - Other specified postprocedural states (ICD-10) History of gastrointestinal surgery Liver biopsy March 2015 Z98.890 - Other specified postprocedural states (ICD-10) Status post hysterectomy Z90.710 - Acquired absence of both cervix and uterus (ICD-10) Status post cholecystectomy Z90.49 - Acquired absence of other specified parts of digestive tract (ICD- 10) Status post appendectomy Z90.49 - Acquired absence of other specified parts of digestive tract (ICD- 10) Female Reproductive History Menstrual Hx Hysterectomy: Yes Hx Tubal Ligation: No Physical Exam Physical Exam Appearance: Reports Obese Pain Distress: Severe Eyes: Reports ONDINA, EOMI and Conjunctiva clear ENT: Reports Nose normal Neck: Supple Respiratory: Reports Airway patent, Breath sounds clear and Breath sounds equal Cardiovascular: Reports RRR, Pulses normal and No rub GI/: Reports Soft and Nontender Musculoskeletal: Reports Normal strength, ROM intact and No edema Skin: Reports Warm, Dry and Normal color Neurological: Reports Motor intact, Alert and Oriented Psychiatric: Reports Anxious Interpretation EKG Interpretation EKG Interpretation By: ED Physician Time of EKG #1: 07:52 Rate: Normal Rhythm: Sinus Ectopy: None [place]: NL ST Segment: Normal Interpretation: NORMAL EKG Critical Care Note Critical Care Note Total Critical Care Time (mins): 0 Course Course 12/27/24 07:47 12/27/24 07:47 Orders, Labs, Meds: Lab Review 12/27/24 12/27/24 12/27/24 07:47 08:43 09:06 WBC 2.56 L RBC 3.15 L Hgb 8.8 L Hct 28.8 L MCV 91.4 MCH 27.9 MCHC 30.6 L RDW Coeff of Riki 15.9 H Plt Count 68 L Immature Gran % (Auto) 0.4 Neut % (Auto) 71.4 Lymph % (Auto) 17.6 [place] % (Auto) 8.2 Eos % (Auto) 2.0 Baso % (Auto) 0.4 Neut # (Auto) 1.8 L Lymph # (Auto) 0.5 L [place] # (Auto) 0.2 L Eos # (Auto) 0.1 Baso # (Auto) 0.0 Immature Gran # (Auto) 0.0 PT 10.8 INR 1.04 APTT 23.3 L Sodium 138.4 Potassium 4.54 Chloride 107.2 H Carbon Dioxide 25.8 Anion Gap 9.94 BUN 21.7 H Creatinine 1.00 Estimated GFR (MDRD) 54.00 BUN/Creatinine Ratio 21.70 Glucose 102.2 Calcium 8.89 Total Bilirubin 0.61 AST 59.0 H ALT 31.3 Alkaline Phosphatase 133.1 Total Creatine Kinase 112.8 Troponin I < 0.012 Total Protein 6.47 Albumin 3.44 L Globulin 3.03 Albumin/Globulin Ratio 1.13 Urine Color Yellow Urine Clarity Slightly Urine pH 6.5 Ur Specific [place] 1.015 Urine Protein Negative Urine Glucose (UA) Negative Urine Ketones Negative Urine Blood Trace-intact H Urine Nitrite Positive H Urine Bilirubin Negative Urine Urobilinogen 0.2 Ur Leukocyte Esterase Negative Urine Microscopic RBC 2-5 Urine Microscopic WBC 2-5 Ur Squamous Epith Cells Not present Urine Bacteria 3+ Urine Opiates Screen Positive H Ur Oxycodone Screen Negative Urine Methadone Screen Negative Ur Barbiturates Screen Negative U Tricyclic Antidepress Negative Ur Phencyclidine Scrn Negative Ur Amphetamine Screen Negative U Methamphetamines Scrn Negative U Benzodiazepines Scrn Negative Urine Cocaine Screen Negative U Cannabinoids Screen Negative Influ A Molecular Assay Influ B Molecular Assay SARS CoV-2 RNA Rapid ROBBY 12/27/24 09:57 WBC RBC Hgb Hct MCV MCH MCHC RDW Coeff of Riki Plt Count Immature Gran % (Auto) Neut % (Auto) Lymph % (Auto) [place] % (Auto) Eos % (Auto) Baso % (Auto) Neut # (Auto) Lymph # (Auto) [place] # (Auto) Eos # (Auto) Baso # (Auto) Immature Gran # (Auto) PT INR APTT Sodium Potassium Chloride Carbon Dioxide Anion Gap BUN Creatinine Estimated GFR (MDRD) BUN/Creatinine Ratio Glucose Calcium Total Bilirubin AST ALT Alkaline Phosphatase Total Creatine Kinase Troponin I Total Protein Albumin Globulin Albumin/Globulin Ratio Urine Color Urine Clarity Urine pH Ur Specific [place] Urine Protein Urine Glucose (UA) Urine Ketones Urine Blood Urine Nitrite Urine Bilirubin Urine Urobilinogen Ur Leukocyte Esterase Urine Microscopic RBC Urine Microscopic WBC Ur Squamous Epith Cells Urine Bacteria Urine Opiates Screen Ur Oxycodone Screen Urine Methadone Screen Ur Barbiturates Screen U Tricyclic Antidepress Ur Phencyclidine Scrn Ur Amphetamine Screen U Methamphetamines Scrn U Benzodiazepines Scrn Urine Cocaine Screen U Cannabinoids Screen Influ A Molecular Assay Negative by naat Influ B Molecular Assay Negative by naat SARS CoV-2 RNA Rapid ROBBY Negative Orders Category Date Time Status ADMIT OBSERVATION [PLACE PATIENT OBSERVATION] .TO ADMISSION 12/27/24 09:55 Active MEDSURG (MONITORED BED) EKG-(ED ONLY) Stat CARDIO 12/27/24 07:32 Completed ED TEACHER VOCAL APPLIED .ONCE EMERGENCY 12/27/24 07:32 Active ED IV/MEDIPORT/POWERPORT .ONCE EMERGENCY 12/27/24 07:32 Active Orthostatic Vital Signs [ED ORTHOSTATIC VITAL SIGNS] . EMERGENCY 12/27/24 07:36 Active ONCE CBC W/ AUTO DIFF Stat LAB 12/27/24 07:47 Completed COMPREHENSIVE METABOLIC PANEL Stat LAB 12/27/24 07:47 Completed COVID [SARS COV-2 RNA RAPID ROBBY] Stat LAB 12/27/24 09:57 Completed CREATINE KINASE Stat LAB 12/27/24 07:47 Completed FLU A/B MOLECULAR Stat LAB 12/27/24 09:57 Completed PARTIAL THROMBOPLASTIN TIME Stat LAB 12/27/24 07:47 Completed PT WITH INR Stat LAB 12/27/24 07:47 Completed TROPONIN I Stat LAB 12/27/24 07:47 Completed URINALYSIS C & S IF INDICATED Stat LAB 12/27/24 09:06 Completed URINE CULTURE Routine LAB 12/27/24 09:17 Received 0.9 % Sodium Chloride [Saline Flush] Meds 12/27/24 07:32 Active 1 syr IVF PRN PRN Ceftriaxone/D5w 1 gm Premix [Rocephin 1 gm/50 ml D5w] Meds 12/27/24 09:42 Discontinued 1 gm in 50 ml IV ONCE Ketorolac Tromethamine [Toradol] Meds 12/27/24 09:48 Discontinued 15 [address] IVP ONCE ONE CT ABDOMEN/PELVIS WO CONTRAST Stat RADS 12/27/24 07:[address] CERVICAL SPINE W/O CONTRAST Stat RADS 12/27/24 07:[address] CHEST W/O CONTRAST Stat RADS 12/27/24 07:[address] HEAD W/O CONTRAST Stat RADS 12/27/24 07:[address] LUMBAR SPINE W/O CONTRAST Stat RADS 12/27/24 07:[address] THORACIC SPINE W/O CONTRAST Stat RADS 12/27/24 07:36 Completed KNEE LEFT 3 VIWS Stat RADS 12/27/24 07:36 Completed KNEE RIGHT 3 VIEWS Stat RADS 12/27/24 07:36 Completed Medications Generic Name Dose Route Start Last Admin Trade Name Freq PRN Reason Stop Dose Admin Acetaminophen 650 mg 12/27/24 11:47 Acetaminophen 325 Mg Tablet PO Q4H PRN Mild Pain Hydrocodone Bitart/Acetaminophen 1 tab 12/27/24 13:03 12/27/24 13:21 Hydrocodone Bit/Acetaminophen 7.5/325 Mg Tablet PO 1 tab BID PRN Administration Pain Albuterol Sulfate 2 puff 12/27/24 13:03 Albuterol Sulfate 8 Gm Inhaler IH Q4-6H PRN Wheezing Buspirone HCl 5 mg 12/27/24 13:03 12/27/24 13:17 Buspirone Hcl 10 Mg Tablet PO 5 mg BID PRN Administration Anxiety Cholecalciferol 1,000 unit 12/27/24 13:30 12/27/24 13:18 Cholecalciferol (Vitamin D3) 1,000 Unit (25 Mcg) Tablet PO 1,000 unit DAILY CARMEN Administration Gabapentin 100 mg 12/27/24 15:00 12/27/24 15:02 Gabapentin 100 Mg Capsule PO 100 mg TID CARMEN Administration Gabapentin 300 mg 12/27/24 15:00 12/27/24 15:02 Gabapentin 300 Mg Capsule PO 300 mg TID CARMEN Administration Sodium Chloride 1,000 mls @ 75 mls/hr 12/27/24 12:00 12/27/24 13:22 Sodium Chloride IV 75 mls/hr .[id number] CARMEN Administration CEFTRIAXONE/D5W 1 GM PREMIX 1 gm in 50 mls @ 100 mls/hr 12/28/24 09:00 Rocephin 1 Gm/50 Ml D5w IV 12/31/24 08:59 DAILY CARMEN Ibuprofen 200 mg 12/27/24 13:03 12/27/24 19:22 Ibuprofen 400 Mg Tablet PO 200 mg BID PRN Administration Pain Losartan Potassium 50 mg 12/28/24 09:00 Losartan Potassium 25 Mg Tablet PO DAILY CARMEN Sodium Chloride 1 syr 12/27/24 07:32 12/27/24 09:59 0.9% Sodium Chloride 10 Ml Disp.Syrin IVF 1 syr PRN PRN Administration To flush IV Discontinued Medications Generic Name Dose Route Start Last Admin Trade Name Fredulce PRN Reason Stop Dose Admin CEFTRIAXONE/D5W 1 GM PREMIX 1 gm in 50 mls @ 75 mls/hr 12/27/24 09:42 12/27/24 09:59 Rocephin 1 Gm/50 Ml D5w IV 12/27/24 10:21 75 mls/hr ONCE STA Administration Ketorolac Tromethamine 15 mg 12/27/24 09:48 12/27/24 09:59 Ketorolac Tromethamine 15 Mg/Ml Vial IVP 12/27/24 09:49 15 mg ONCE ONE Administration Vital Signs: Temp Pulse Resp BP Pulse Ox 12/27/24 08:05 95 150/104 H 12/27/24 08:05 86 217/132 H 12/27/24 08:04 73 179/96 H 12/27/24 07:09 97.5 F L 80 20 177/90 H 96 Discharge Plan Discharge Patient Disposition: PLACED OBSERVATION Discharge Problem: Cystitis, Generalized muscle weakness, Falls Back pain Qualifiers: Back pain location: low back pain Chronicity: acute Back pain laterality: b ilateral Sciatica presence: without sciatica Qualified Code(s): M54.50 - Low back pain, unspecified Did you review [place] for ALL controlled substances?: No ED Provider: RESHMA MCNALLY Condition: Stable Physician Progress Note: Patient needed significant assistance to get up and give a urine sample. Discussed CT findings and urinary findings with patient advised of admission due to generalized weakness and urinary tract infection for IV antibiotics prior to discharge.
[2024-12-27 07:51] LABS: BASOPHILS % (AUTO) 0.4 % (0.0-3.0); EOSINOPHILS # (AUTO) 0.1 K/ul (0.0-0.7); HEMATOCRIT 28.8 % (37.0-47.0); HEMOGLOBIN 8.8 g/dl (12.0-16.0); IMMATURE GRANULOCYTE % (AUTO) 0.4 % (0.0-5.0); LYMPHOCYTES # (AUTO) 0.5 K/uL (0.60-3.4); LYMPHOCYTES % (AUTO) 17.6 (10.0-50.0); MEAN CORPUSCULAR HEMOGLOBIN 27.9 pg (27.0-31.0); MEAN CORPUSCULAR HGB CONC 30.6 (31.8-35.4); MEAN CORPUSCULAR VOLUME 91.4 fl (81.0-99.0); MONOCYTES # (AUTO) 0.2 K/uL (0.4-2.0); MONOCYTES % (AUTO) 8.2 (0-10); NEUTROPHILS # (AUTO) 1.8 K/ul (2.0-6.9); NEUTROPHILS % (AUTO) 71.4 % (42.2-75.2); PLATELET COUNT 68 10^3/uL (140-440); RDW COEFFICIENT OF VARIATION 15.9 % (11.6-14.8); RED BLOOD COUNT 3.15 10^6/ul (4.20-5.40); WHITE BLOOD COUNT 2.56 K/ul (4.6-10.2)
[2024-12-27 08:03] LABS: ALANINE AMINOTRANSFERASE 31.3 U/L (0-35); ALBUMIN 3.44 g/dL (3.5-5.0); ALKALINE PHOSPHATASE 133.1 U/L (53-141); BILIRUBIN,TOTAL 0.61 mg/dL (0.2-1.3); BLOOD UREA NITROGEN 21.7 mg/dL (7-17); CALCIUM 8.89 mg/dL (8.4-10.2); CARBON DIOXIDE 25.8 mmol/L (22-30.0); CHLORIDE 107.2 mmol/L (98-107); GLUCOSE 102.2 mg/dL (74-106); POTASSIUM 4.54 mmol/L (3.5-5.1); SODIUM 138.4 mmol/L (134.5-145); TOTAL PROTEIN 6.47 g/dL (6.3-8.2)
[2024-12-27 08:06] LABS: PARTIAL THROMBOPLASTIN TIME 23.3 SEC (23.9-40.0); PROTHROMBIN TIME 10.8 SEC (9.3-11.0)
[2024-12-27 08:15] LABS: TROPONIN I < 0.012 ng/ml (0.0000-0.120)
--- NOTE | 2024-12-27 09:03 | CT ---
EXAM: CT SCAN BRAIN WITHOUT CONTRAST HISTORY: Altered mental status COMPARISON: CT scan brain 04/14/2024 FINDINGS: Helically acquired axial images obtained from skull base to the convexities without contra st utilizing 5-mm collimation. Sagittal and coronal reconstructions were imaged and reviewed. The v entricles and CSF spaces are prominent compatible with age appropriate atrophy. There is moderate pe riventricular hypodensity noted compatible with chronic microvascular disease. No acute intracranial findings. Atherosclerotic changes are seen involving cavernous internal carotid arteries. The visu alized paranasal sinuses and mastoid air cells are clear. The calvarium is intact. IMPRESSION: No acute intracranial findings All CT scans are performed using dose optimization techniques as appropriate to the performed exam an d include at least one of the following: Automated exposure control, adjustment of the mA and/or kV according t o size, and the use of iterative reconstruction technique.
[2024-12-27 09:11] LABS: BILIRUBIN,URINE Negative (NEGATIVE); CLARITY,URINE Slightly (CLEAR); COLOR,URINE Yellow (YELLOW); GLUCOSE, URINE (UA) Negative (NEGATIVE); KETONES,URINE Negative (NEGATIVE); LEUKOCYTE ESTERASE ,URINE Negative (NEGATIVE); NITRITE,URINE Positive (NEGATIVE); PH,URINE 6.5 (5-9); PROTEIN,URINE Negative (NEGATIVE); URINE, BLOOD Trace-intact (NEGATIVE); UROBILINOGEN,URINE 0.2 (0.2)
--- NOTE | 2024-12-27 09:12 | CT ---
EXAM: CT CHEST WITHOUT CONTRAST. HISTORY: Back pain following a fall. COMPARISON: Chest radiograph 09/06/2024. CT 10/24/2016. TECHNIQUE: Multiple axial images of the chest were obtained without intravenous contrast. Images we re reformatted in the sagittal and coronal planes. FINDINGS: Limited assessment for lymphadenopathy without contrast. Heart size at the upper limits n ormal. Coronary artery and aortic calcifications present. No pericardial effusion identified. No consolidation, pleural effusion or pneumothorax identified. Mild subpleural reticular opacities in the left upper lobe could represent minimal fibrosis. Limited images of the upper abdomen demonstrate cirrhosis with splenomegaly. Bilateral renal lesions are incompletely imaged. Refer to same day abdominal CT report for details. Old degenerative changes present in the spine. No acute fracture identified. Old mild T9 compressio n deformity, stable since 2015. IMPRESSION: No acute post-traumatic abnormality of the chest. All CT scans are performed using dose optimization techniques as appropriate to the performed exam an d include at least one of the following: Automated exposure control, adjustment of the mA and/or kV according t o size, and the use of iterative reconstruction technique.
--- NOTE | 2024-12-27 09:13 | CT ---
EXAMINATION: CT CERVICAL SPINE WITHOUT CONTRAST HISTORY: Trauma. Neck pain. TECHNIQUE: Computed tomography (CT) of the cervical spine was performed according to standard protoco l without intravenous contrast.2-D coronal and sagittal reformatted images were obtained from the axi al source images. CT Dose Reduction Techniques Performed: Yes. Contrast Dose: None. COMPARISON: None. FINDINGS: Post-Surgical Changes/Hardware: None . Bones: No acute bony abnormality. No lytic or blastic lesion. The lateral masses of C1 are aligned on the lateral masses of C2. The atlantodental joint is within normal limits. Degenerative changes: Moderate bony spurring. Alignment: WIthin normal limits. Discs: Multilevel moderate loss of disc space height. Soft Tissues: Paravertebral soft tissues are unremarkable. Lung apices: Unremarkable. Other: None. IMPRESSION: 1. No acute bony abnormality. Moderate spondylosis and degenerative disc disease. All CT scans are performed using dose optimization techniques as appropriate to the performed exam an d include at least one of the following: Automated exposure control, adjustment of the mA and/or kV according t o size, and the use of iterative reconstruction technique.
--- NOTE | 2024-12-27 09:14 | CT ---
EXAM: CT ABDOMEN AND PELVIS WITHOUT CONTRAST HISTORY: Fall with back pain. TECHNIQUE: CT acquisition of the abdomen and pelvis from the lower thorax through the pelvis without IV contrast administration. 2-D coronal and sagittal reformatted images were obtained from the axial source images. The chest and entire spine were also imaged but will be interpreted separately. Oral Contrast: None. CT Dose Reduction Techniques Performed: Yes. COMPARISON: 10/15/2024 FINDINGS: Evaluation of the solid abdominal organs is limited without IV contrast. No visible body wall contus ion. No obvious evidence of solid abdominal organ injury. Nodularity of the liver surface, again not ed, consistent with cirrhosis. No obvious liver mass. No intrahepatic biliary tree dilatation. Mil d distension of the common duct, measuring 11 mm in diameter, stable to mildly progressed. Cholecyst ectomy, again noted. The pancreas and adrenal glands have a normal appearance. The spleen is enlarg ed, measuring 14 cm in length, about the same. Mild para esophageal varices, stable. Several renal c ysts bilaterally, again noted. Largest on the right measures 5.7 cm. Largest on the left measures 9 .5 cm. A couple of the cysts on the left demonstrate partial wall calcification, stable. 0.6 cm hem orrhagic/proteinaceous cyst of the left kidney. No ureteral stones or hydronephrosis. Hysterectomy, again noted. No visible adnexal mass. Stable mild colonic diverticulosis. No evidence of diverticul itis. No free air or free fluid. No enlarged lymph nodes are identified. Bone window images again show old, healed fracture of the left inferior pubic ramus, and stable chron ic mild widening of the pubic symphysis. The sacroiliac joints are intact. Moderate to severe degen erative changes of both sacroiliac joints, again noted. IMPRESSION: 1. No acute findings in the abdomen or pelvis, although evaluation is limited without IV contrast. 2. Liver cirrhosis, again noted. 3. Stable mild splenomegaly and para esophageal varices, suggesting portal hypertension. No ascites . 4. Cholecystectomy, again noted. 5. Mild distension of the common duct, stable to mildly progressed, but no intrahepatic biliary tree dilatation. Findings might be due to the cholecystectomy. However, please correlate for clinical a nd lab evidence of biliary tree obstruction. If present, then MRCP would be recommended. 6. Old, healed fracture of the left inferior ramus, and stable chronic mild widening of the pubic sy mphysis. The sacroiliac joints are intact. Moderate to severe degenerative changes of both sacroiliac joints, sta ble. 7. For findings in the chest and spine, please refer to separate reports. All CT scans are performed using dose optimization techniques as appropriate to the performed exam an d include at least one of the following: Automated exposure control, adjustment of the mA and/or kV according t o size, and the use of iterative reconstruction technique.
[2024-12-27 09:15] LABS: SQUAMOUS EPITHELIAL CELL,UR NOT PRESENT (0-5)
--- NOTE | 2024-12-27 09:15 | CT ---
EXAM: CT LUMBAR SPINE WITHOUT CONTRAST. HISTORY: Back pain following a fall. COMPARISON: MRI 10/26/2024. Abdominal CT 10/15/2024. TECHNIQUE: Multiple axial images of the lumbar spine were obtained without intravenous contrast. Im ages were reformatted in the sagittal and coronal planes. FINDINGS: There is anterolisthesis L4 on L5 by 0.6 cm noted. Retrolisthesis L1 on L2 by 0.3 cm noted . There is left convex curvature centered at L3. The vertebral body heights are normal. There is n o acute fracture. Multilevel loss of disc height with multilevel vacuum disc phenomenon and disc ost eophyte formation present along with multilevel facet hypertrophy causing stable multilevel central c anal stenosis and neural foraminal narrowing.. Stable previous posterior decompression at the L3-4 t hrough L5-S1 levels. No acute paravertebral soft tissue abnormality. Refer to same day abdominal CT report for details on adjacent abdominal and pelvic findings. IMPRESSION: No acute post-traumatic abnormality of the lumbar spine. All CT scans are performed using dose optimization techniques as appropriate to the performed exam an d include at least one of the following: Automated exposure control, adjustment of the mA and/or kV according t o size, and the use of iterative reconstruction technique.
--- NOTE | 2024-12-27 09:16 | CT ---
EXAM: CT SCAN THORACIC SPINE HISTORY: Back pain COMPARISON: The thoracic spine 09/11/2024, CT thoracic spine 10/24/16 FINDINGS: Helically acquired axial images obtained through the thoracic spine utilizing 2.5-mm colli mation. Sagittal and coronal reconstructions were imaged and reviewed.. There is diffuse osteopenia . Diffuse degenerative disc disease with ventral spondylitic changes. The facet joints are intact. There is no acute fracture or listhesis. Right-sided neural foraminal narrowing is noted at T4-T5 thr ough T6- T7 . Posterior osteophytes at T11-T12.. IMPRESSION: Osteopenia and diffuse spondylitic changes as described. Multilevel neural foraminal narrowing without central canal stenosis All CT scans are performed using dose optimization techniques as appropriate to the performed exam an d include at least one of the following: Automated exposure control, adjustment of the mA and/or kV according t o size, and the use of iterative reconstruction technique.
[2024-12-27 09:17] LABS: BACTERIA,URINE 3+ (NOT PRESENT)
--- NOTE | 2024-12-27 09:30 | DI ---
EXAM: RIGHT KNEE RADIOGRAPH TECHNIQUE: 3 views. Frontal, lateral, and oblique. HISTORY: Pain. COMPARISON: 04/11/2024. FINDINGS: Bones: No acute fracture. Joints: Status post right knee arthroplasty, stable. No effusion. Soft tissues: Unremarkable. Other: None. IMPRESSION: 1. No acute findings. Status post right knee arthroplasty.
--- NOTE | 2024-12-27 09:31 | DI ---
EXAM: LEFT KNEE RADIOGRAPH TECHNIQUE: 3 views. Frontal, lateral, and patellar. HISTORY: Left knee pain. COMPARISON: None. FINDINGS: Mild diffuse soft tissue swelling. No significant joint effusion. Chondrocalcinosis of the medial a nd lateral compartments. Diffuse osteopenia. Moderate joint space loss of the medial compartment. Mild lateral subluxation of the tibia. Mild to moderate marginal osteophyte formation of all three c ompartments. No visible fractures or dislocations. IMPRESSION: 1. Soft tissue swelling without visible fracture. 2. 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
[2024-12-27] MEDS: ROCEPHIN 1 GM/50 ML D5W 1 GM/50 ML BAG IV STA (09:59)
[2024-12-27] MEDS: TORADOL IVP ONE (09:59)
[2024-12-27 10:16] LABS: MOLECULAR FLU A NEGATIVE BY NAAT (NEGATIVE); MOLECULAR FLU B NEGATIVE BY NAAT (NEGATIVE); SARS COV-2 RNA RAPID NAAT NEGATIVE (NEGATIVE)
[2024-12-27 11:41] VITALS: BMI 34.5
[2024-12-27] MEDS ORDERED: TYLENOL PO PRN (11:47)
--- NOTE | 2024-12-27 12:44 | PCM ---
Date of Service Date Seen by Provider: 12/27/24 Time Seen by Provider: 12:30 Admit Day/Time Admission Date: 12/27/24 Admission Time: 10:00 Reason for Admission Chief Complaint: UTI,WEAKNESS,FALL Hospital Provider Hospital Provider: IMANI DAILY, [facility] [place] [facility] Primary Care Physician: MAKEDA ADHIKARI MD History of Present Illness History of Present Illness: 74 yo female with pmh of alcoholic cirrhosis, splenomegaly, pancytopenia, COPD, and Hep C presented to the ER with weakness. Patient states that she was sleeping on the couch last night due to grandchildren she is raising sleeping in her room. Got up to go to the bathroom and fell in the hallway. Denies hitting her head or other injuries. Did not call for help from grandsons. Crawled from the hallway back to the living room and was unable to lift herself up onto the couch from the floor. Unknown length of time she layed in the floor. States she has been getting progressively weak over the last couple days. Has noticed that she is not peeing much at all and is confused at times. States her grandsons will tell her something and she won't understand what they are telling her. Denies any fever, nausea, vomiting, or diarrhea. Denies any urinary frequency, urgency, or dysuria. CT scans negative for acute findings. Found to have UTI and given rocephin. Admitted to med/surg observation. Case Discussed With Case Discussed With: Patient's case was discussed with the ER Physicians, Dr. Irene. [facility] Medical History Sacroiliitis M46.1 - Sacroiliitis, not elsewhere classified (ICD-10) URI with cough and congestion Mask use, present to hospital, inform them being tested for covid I have updated outpatient team regarding possible covid. Testing today. J06.9 - Acute upper respiratory infection, unspecified (ICD-10) Urinary tract infection urine auto reports: leukocytes-small nitrates-positive protein-100mg/dL blood-moderate will start Macrodantin 100mg bid x 10 days and send urine for UA will get CT abdomen/pelvis or renal ultrasound to evaluate kidneys follow up in 2 weeks, repeat UA N39.0 - Urinary tract infection, site not specified (ICD-10) Knee pain M25.569 - Pain in unspecified knee (ICD-10) Acute rhinosinusitis J01.90 - Acute sinusitis, unspecified (ICD-10) Acute upper respiratory infection J06.9 - Acute upper respiratory infection, unspecified (ICD-10) Toe pain, right M79.674 - Pain in right toe(s) (ICD-10) Gout M10.9 - Gout, unspecified (ICD-10) Hypertension I10 - Essential (primary) hypertension (ICD-10) Chronic hepatitis C B18.2 - Chronic viral hepatitis C (ICD-10) Surgical History back surgery 2015 History of surgery cataract Z98.890 - Other specified postprocedural states (ICD-10) History of gastrointestinal surgery Liver biopsy March 2015 Z98.890 - Other specified postprocedural states (ICD-10) Status post hysterectomy Z90.710 - Acquired absence of both cervix and uterus (ICD-10) Status post cholecystectomy Z90.49 - Acquired absence of other specified parts of digestive tract (ICD- 10) Status post appendectomy Z90.49 - Acquired absence of other specified parts of digestive tract (ICD- 10) Family History Mother , brain bleed No problems noted. FATHER , murdered No problems noted. SISTER , suicide. She hung herself No problems noted. BROTHER , found with brother No problems noted. BROTHER , found with brother No problems noted. BROTHER , I was told his heart popped. Pacemaker complications Social History Smoking and tobacco status: Former smoker Tobacco: How many years used: 10 Second hand smoke exposure: Yes Alcohol intake: never Substance use type: does not use Jihan/latter-day: Christian Special jihan needs: No Agree to transfusion: Yes Adopted: No Caregiver/support person: No Foster care: No Household members: family and none Housing: house Marital status: S SINGLE Lives independently: Yes Number of children: 2 Number of grandchildren: 6 Highest education level completed: some college, no degree Financial difficulty paying for basics: not very hard service: No residential: No Current occupational status: retired Current occupational exposures/hazards: No Previous occupational history: Factory work and [employer] Pets and animals: No Leisure activites: reading and other History of recent travel: No (to [place], Returned 2 days ago from [facility]) Sexually active: No Do you think of yourself as: straight/heterosexual Current gender identity: female Seatbelt use: always Helmet use: No Drives intoxicated or rides with intoxicated milk wagon driver: No Water heater temperature set < 120 degrees: Yes Working smoke detector in home: Yes Fire extinguisher in home: Yes Carbon monoxide detector in home: Yes Firearms in home: No Allergies Allergies Allergy/AdvReac Type Severity Reaction Status Date / Time morphine Allergy Intermediate itching Verified 12/27/24 07:19 baclofen AdvReac Severe Vomiting Verified 12/27/24 07:19 lisinopril AdvReac Intermediate cough/dry/throat Verified 12/27/24 07:19 clearing metformin AdvReac Mild Diarrhea Verified 12/27/24 07:19 semaglutide (From Ozempic) AdvReac Mild Nausea/abdominal Verified 12/27/24 07:19 pain tizanidine HCl (From AdvReac hallucinati Verified 12/27/24 07:19 Zanaflex) ons Current Medications Home Medications Acetaminophen (Acetaminophen 325 Mg Tablet) 650 mg PO Q4H PRN PRN Reason: Mild Pain Sodium Chloride (Sodium Chloride) 1,000 mls @ 75 mls/hr IV .[id number] CARMEN CEFTRIAXONE/D5W 1 GM PREMIX (Rocephin 1 Gm/50 Ml D5w) 1 gm in 50 mls @ 100 mls/hr IV DAILY CARMEN Stop: 12/31/24 08:59 Sodium Chloride (0.9% Sodium Chloride 10 Ml Disp.Syrin) 1 syr IVF PRN PRN PRN Reason: To flush IV Last Admin: 12/27/24 09:59 Dose: 1 syr cholecalciferol (vitamin D3) 25 mcg (1,000 unit) capsule 25 mcg PO QDAY 05/02/24 [History Confirmed 12/27/24] albuterol sulfate 90 mcg/actuation aerosol inhaler 2 puff inhalation Q4-6H PRN shortness of breath or wheezing #8.5 grams 08/17/24 [Rx Confirmed 12/27/24] diclofenac sodium 1 % topical gel (Arthritis Pain (diclofenac)) 2 g topical QID #100 grams 09/05/24 [Rx Confirmed 12/27/24] furosemide 20 mg tablet (Lasix) 20 mg PO DAILY #7 tabs 09/06/24 [Rx Confirmed 12/27/24] potassium chloride 20 mEq tablet,extended release 20 meq PO DAILYWM2 #30 tabs 09/12/24 [Rx Confirmed 12/27/24] hydrocodone 7.5 mg-acetaminophen 325 mg tablet 1 tab PO BID PRN pain #60 tabs 12/07/24 [Rx Confirmed 12/27/24] gabapentin 400 mg capsule 400 mg PO TID #270 caps 12/12/24 [Rx Confirmed 12/27/24] B12 1 tab PO DAILY 12/27/24 [History Confirmed 12/27/24] buspirone 5 mg tablet 5 mg PO BID PRN anxiety 12/27/24 [History Confirmed 12/27/24] ibuprofen 200 mg tablet 200 mg PO BID PRN Mild to Moderate pain 12/27/24 [History Confirmed 12/27/24] losartan 50 mg tablet 50 mg PO DAILY 12/27/24 [History Confirmed 12/27/24] trazodone 100 mg tablet 100 mg PO BEDTIME 12/27/24 [History Confirmed 12/27/24] Opioid Naive vs. Tolerant Does Patient Take Opioids?: Yes Is Patient Opioid Naive?: No What is Opioid Naive?: *Opioid Naive implies the patient is not already taking opioids or not chronically receiving opioids on a daily basis. *PRN dosing is not "usually" associated with tolerance. *Patients are at higher risk of over-sedation and aspiration. Is Patient Opioid Tolerant?: No What is Opioid Tolerant?: *Opioid Tolerance implies less than the expected response to an opioid. *Acquired tolerance is defined by the patient taking 60mg of oral morphine daily (or equianalgesic dose of another opioid) for 1 week or more. *Often associated with chronic pain. *May take more than usual dose to achieve desired pain control. Review of Systems Constitutional: Reports Weakness Head: Reports Normocephalic Eyes: Reports No symptoms Ears: Reports No symptoms Nose: Reports No symptoms Mouth: Reports No symptoms Throat: Reports No symptoms Cardiovascular: Reports No symptoms Respiratory: Reports No symptoms Gastrointestinal: Reports No symptoms Genitourinary: Reports Other (minimal urine output) Musculoskeletal: Reports No symptoms Endocrine: Reports No symptoms Hematology: Reports No symptoms Immunology: Reports No symptoms Neurological: Reports No symptoms Psychiatric: Reports No symptoms Physical examination Most Recent Vital Signs: Most Recent Vital Signs Temperature 97.3 F L 12/27/24 11:12 Temperature Source Temporal Artery Scan 12/27/24 11:12 Temperature Source Temporal Artery Scan 12/27/24 07:09 Pulse Rate 83 12/27/24 11:12 Respiratory Rate 16 12/27/24 11:12 Blood Pressure 150/104 H 12/27/24 08:05 Blood Pressure Right Arm 140/86 12/27/24 11:12 Blood Pressure Position Sitting 12/27/24 11:12 O2 Sat by Pulse Oximetry 100 12/27/24 11:12 Oxygen Delivery Method Room Air 12/27/24 11:12 Height 5 ft 1 in 12/27/24 11:12 Weight 83 kg 12/27/24 11:59 Appearance: Positive No Apparent Distress and Alert and Oriented x3 Skin: Positive Warm and Good Turgor HEENT: Positive Normocephalic and PERRLA Neck: Positive Supple and Midline Trachea Chest/Lungs: Positive Symmetrical With Equal Breath Sounds, Clear to Auscultation Bilaterally and Good Air Movement all 4 Lung Uri[place] Heart: Positive RRR and Pulses Normal GI/: Positive Soft, Nontender, Bowel Sounds Normal and No Distention Musculoskeletal: Positive Not Examined Extremities: Positive Edema (+1-2 nonpitting BLE), Intact Peripheral Pulses and Stable Joints Without Laxity Neurological: Positive Sensation Intact, Motor intact, Alert, Oriented and Other (generalized weakness, mildly worse to LUE than RUE) Labs This Visit Labs This Visit: Labs This Visit 12/27/24 12/27/24 12/27/24 07:47 09:06 09:57 WBC 2.56 L RBC 3.15 L Hgb 8.8 L Hct 28.8 L MCV 91.4 MCH 27.9 MCHC 30.6 L RDW Coeff of Riki 15.9 H Plt Count 68 L Immature Gran % (Auto) 0.4 Neut % (Auto) 71.4 Lymph % (Auto) 17.6 [place] % (Auto) 8.2 Eos % (Auto) 2.0 Baso % (Auto) 0.4 Neut # (Auto) 1.8 L Lymph # (Auto) 0.5 L [place] # (Auto) 0.2 L Eos # (Auto) 0.1 Baso # (Auto) 0.0 Immature Gran # (Auto) 0.0 PT 10.8 INR 1.04 APTT 23.3 L Sodium 138.4 Potassium 4.54 Chloride 107.2 H Carbon Dioxide 25.8 Anion Gap 9.94 BUN 21.7 H Creatinine 1.00 Estimated GFR (MDRD) 54.00 BUN/Creatinine Ratio 21.70 Glucose 102.2 Calcium 8.89 Total Bilirubin 0.61 AST 59.0 H ALT 31.3 Alkaline Phosphatase 133.1 Total Creatine Kinase 112.8 Troponin I < 0.012 Total Protein 6.47 Albumin 3.44 L Globulin 3.03 Albumin/Globulin Ratio 1.13 Urine Color Yellow Urine Clarity Slightly Urine pH 6.5 Ur Specific [place] 1.015 Urine Protein Negative Urine Glucose (UA) Negative Urine Ketones Negative Urine Blood Trace-intact H Urine Nitrite Positive H Urine Bilirubin Negative Urine Urobilinogen 0.2 Ur Leukocyte Esterase Negative Urine Microscopic RBC 2-5 Urine Microscopic WBC 2-5 Ur Squamous Epith Cells Not present Urine Bacteria 3+ Influ A Molecular Assay Negative by naat Influ B Molecular Assay Negative by naat SARS CoV-2 RNA Rapid ROBBY Negative Imaging Imaging: EXAM: CT SCAN BRAIN WITHOUT CONTRAST FINDINGS: Helically acquired axial images obtained from skull base to the convexities without contrast utilizing 5-mm collimation. Sagittal and coronal reconstructions were imaged and reviewed. The ventricles and CSF spaces are prominent compatible with age appropriate atrophy. There is moderate periventricular hypodensity noted compatible with chronic microvascular disease. No acute intracranial findings. Atherosclerotic changes are seen involving cavernous internal carotid arteries. The visualized paranasal sinuses and mas toid air cells are clear. The calvarium is intact. IMPRESSION: No acute intracranial findings EXAM: CT ABDOMEN AND PELVIS WITHOUT CONTRAST FINDINGS: Evaluation of the solid abdominal organs is limited without IV contrast. No visible body wall contusion. No obvious evidence of solid abdominal organ injury. Nodularity of the liver surface, again noted, consistent with ci rrhosis. No obvious liver mass. No intrahepatic biliary tree dilatation. Mild distension of the common duct, measuring 11 mm in diameter, stable to mildly progressed. Cholecystectomy, again noted. The pancreas and adrenal glands have a normal appearance. The spleen is enlarged, measuring 14 cm in length, about the same. Mild para esophageal varices, stable. Several renal cysts bilaterally, again noted. Largest on the right measures 5.7 cm. Largest on the left measures 9.5 cm. A couple of the cysts on the left demonstrate partial wall calcification, stable. 0.6 cm hemorrhagic/proteinaceous cyst of the left kidney. No ureteral stones or hydronephrosis. Hysterectomy, again noted. No visible adnexal mass. Stable mild colonic diverticulosis. No evidence of diverticulitis. No free air or free fluid. No enlarged lymph nodes are identified. Bone window images again show old, healed fracture of the left inferior pubic ramus, and stable chronic mild widening of the pubic symphysis. The sacroiliac joints are intact. Moderate to severe degenerative changes of both sacroiliac joints, again noted. IMPRESSION: 1. No acute findings in the abdomen or pelvis, although evaluation is limited without IV contrast. 2. Liver cirrhosis, again noted. 3. Stable mild splenomegaly and para esophageal varices, suggesting portal hypertension. No ascites. 4. Cholecystectomy, again noted. 5. Mild distension of the common duct, stable to mildly progressed, but no intrahepatic biliary tree dilatation. Findings might be due to the cholecystectomy. However, please correlate for clinical and lab evidence of biliary tree obstruction. If present, then MRCP would be recommended. 6. Old, healed fracture of the left inferior ramus, and stable chronic mild widening of the pubic symphysis. The sacroiliac joints are intact. Moderate to severe degenerative changes of both sacroiliac joints, stable. 7. For findings in the chest and spine, please refer to separate reports. EXAMINATION: CT CERVICAL SPINE WITHOUT CONTRAST FINDINGS: Post-Surgical Changes/Hardware: None . Bones: No acute bony abnormality. No lytic or blastic lesion. The lateral masses of C1 are aligned on the lateral masses of C2. The atlantodental joint is within normal limits. Degenerative changes: Moderate bony spurring. Alignment: WIthin normal limits. Discs: Multilevel moderate loss of disc space height. Soft Tissues: Paravertebral soft tissues are unremarkable. Lung apices: Unremarkable. Other: None. IMPRESSION: 1. No acute bony abnormality. Moderate spondylosis and degenerative disc disease. EXAM: CT CHEST WITHOUT CONTRAST. FINDINGS: Limited assessment for lymphadenopathy without contrast. Heart size at the upper limits normal. Coronary artery and aortic calcifications present. No pericardial effusion identified. No consolidation, pleural effusion or pneumothorax identified. Mild subpleural reticular opacities in the left upper lobe could represent minimal fibrosis. Limited images of the upper abdomen demonstrate cirrhosis with splenomegaly. Bilateral renal lesions are incompletely imaged. Refer to same day abdominal CT report for details. Old degenerative changes present in the spine. No acute fracture identified. Old mild T9 compression deformity, stable since 2016. IMPRESSION: No acute post-traumatic abnormality of the chest. EXAM: CT LUMBAR SPINE WITHOUT CONTRAST. FINDINGS: There is anterolisthesis L4 on L5 by 0.6 cm noted. Retrolisthesis L1 on L2 by 0.3 cm noted. There is left convex curvature centered at L3. The vertebral body heights are normal. There is no acute fracture. Multilevel loss of disc height with multilevel vacuum disc phenomenon and disc osteophyte formation present along with multilevel facet hypertrophy causing stable multilevel central canal stenosis and neural foraminal narrowing.. Stable previous posterior decompression at the L3-4 through L5-S1 levels. No acute paravertebral soft tissue abnormality. Refer to same day abdominal CT report for details on adjacent abdominal and pelvic findings. IMPRESSION: No acute post-traumatic abnormality of the lumbar spine. EXAM: CT SCAN THORACIC SPINE FINDINGS: Helically acquired axial images obtained through the thoracic spine utilizing 2.5-mm collimation. Sagittal and coronal reconstructions were imaged and reviewed.. There is diffuse osteopenia. Diffuse degenerative disc disease with ventral spondylitic changes. The facet joints are intact. There is no acute fracture or listhesis. Right-sided neural foraminal narrowing is noted at T4-T5 through T6- T7 . Posterior osteophytes at T11-T12.. IMPRESSION: Osteopenia and diffuse spondylitic changes as described. Multilevel neural foraminal narrowing without central canal stenosis Review Statement Review Statement: I have independently reviewed and interpreted the labs/EKGs/imaging that were ordered by the ER provider. I have reviewed all outside records that are available currently in our EMR including imaging/notes/labs from previous visits. Plan Plan: 1. UTI - urine culture pending, rocephin 1G Q24H 2. Pancytopenia - likely worsened due to UTI, PCP working on referral to Hem/Onc 3. Weakness - could be due to #1, patient reported intermittent confusion, checking ammonia level, ETOH, and UDS 4. Chronic Alcoholic Cirrhosis - checking ammonia due to mild confusion and weakness, LFTs stable 5. COPD - does not appear in exacerbation, monitor 6. HTN - chronic, continue home medications DVT Prophylaxis: Up with assist Time Spent: Greater than 80 minutes spent with patient, 50% of the time spent with this patient was devoted to counseling and coordination of care. [facility] minutes spent discussing advance care planning. Disposition: Admit to: Med/surg Observation Discussed Plan of Care with Dr. Wen Madden. Medications Medication Orders: Medications Ordered Category Date Time Status 0.9 % Sodium Chloride [Saline Flush] Meds 12/27/24 07:32 Active 1 syr IVF PRN PRN Acetaminophen [Tylenol] Meds 12/27/24 11:47 Active 650 mg PO Q4H PRN Ceftriaxone/D5w 1 gm Premix [Rocephin 1 gm/50 ml D5w] Meds 12/28/24 09:00 Active 1 gm in 50 ml IV DAILY Sodium Chloride 0.9% [Sodium Chloride] 1,000 ml Meds 12/27/24 12:00 Active IV 75 mls/hr
[2024-12-27] MEDS ORDERED: VENTOLIN HFA IH PRN (13:03)
[2024-12-27] MEDS: BUSPAR PO PRN (13:17)
[2024-12-27] MEDS: VITAMIN D PO SCH (13:18)
[2024-12-27] MEDS: MOTRIN PO PRN (13:19)
[2024-12-27] MEDS: NORCO 7.5-325 PO PRN (13:21)
[2024-12-27] MEDS: SODIUM CHLORIDE 1,000 ML IV SCH (13:22)
[2024-12-27] MEDS ORDERED: NON-FORMULARY MEDICATION (Gabapentin 400 mg capsule) PO SCH (15:00)
[2024-12-27] MEDS: NEURONTIN PO SCH ×2 (15:02)
[2024-12-27 15:11] LABS: AMPHETAMINE SCREEN,URINE NEGATIVE (NEGATIVE); BARBITURATE SCREEN,URINE NEGATIVE (NEGATIVE); BENZODIAZEPINES SCREEN,URINE NEGATIVE (NEGATIVE); CANNABINOID SCREEN,URINE NEGATIVE (NEGATIVE); COCAIN SCREEN,URINE NEGATIVE (NEGATIVE); METHADONE URINE SCREEN NEGATIVE (NEGATIVE); METHAMPHETAMINES SCREEN,URINE NEGATIVE (NEGATIVE); OPIATE SCREEN,URINE POSITIVE (NEGATIVE); OXYCODONE URINE SCREEN NEGATIVE (NEGATIVE); PHENCYCLIDINE SCREEN,URINE NEGATIVE (NEGATIVE); TRICYCLIC ANTIDEPRESSANTS URIN NEGATIVE (NEGATIVE)
[2024-12-28 05:41] LABS: BASOPHILS % (AUTO) 0.5 % (0.0-3.0); EOSINOPHILS # (AUTO) 0.1 K/ul (0.0-0.7); EOSINOPHILS % (AUTO) 2.8 % (0.0-7.0); HEMATOCRIT 27.6 % (37.0-47.0); HEMOGLOBIN 8.4 g/dl (12.0-16.0); LYMPHOCYTES # (AUTO) 0.4 K/uL (0.60-3.4); LYMPHOCYTES % (AUTO) 18.3 (10.0-50.0); MEAN CORPUSCULAR HEMOGLOBIN 27.9 pg (27.0-31.0); MEAN CORPUSCULAR HGB CONC 30.4 (31.8-35.4); MEAN CORPUSCULAR VOLUME 91.7 fl (81.0-99.0); MONOCYTES # (AUTO) 0.2 K/uL (0.4-2.0); NEUTROPHILS # (AUTO) 1.5 K/ul (2.0-6.9); NEUTROPHILS % (AUTO) 70.4 % (42.2-75.2); PLATELET COUNT 70 10^3/uL (140-440); RED BLOOD COUNT 3.01 10^6/ul (4.20-5.40); WHITE BLOOD COUNT 2.13 K/ul (4.6-10.2)
[2024-12-28 05:59] LABS: ALANINE AMINOTRANSFERASE 26.6 U/L (0-35); ALBUMIN 2.92 g/dL (3.5-5.0); ALKALINE PHOSPHATASE 116.2 U/L (53-141); ASPARTATE AMINO TRANSFERASE 53.6 U/L (14-36); BILIRUBIN,TOTAL 0.35 mg/dL (0.2-1.3); BLOOD UREA NITROGEN 20.1 mg/dL (7-17); CALCIUM 8.3 mg/dL (8.4-10.2); CARBON DIOXIDE 26.4 mmol/L (22-30.0); CHLORIDE 109.2 mmol/L (98-107); CREATININE 1.08 mg/dL (0.60-1.30); GLUCOSE 89.9 mg/dL (74-106); POTASSIUM 4.59 mmol/L (3.5-5.1); SODIUM 139.1 mmol/L (134.5-145); TOTAL PROTEIN 5.79 g/dL (6.3-8.2)
[2024-12-28] MEDS: COZAAR PO SCH (08:47)
[2024-12-28] MEDS: ROCEPHIN 1 GM/50 ML D5W 1 GM/50 ML BAG IV SCH (08:48)
--- NOTE | 2024-12-28 11:22 | PCM.PROG ---
Date/Time Seen Date Seen by Provider: 12/28/24 Time Seen by Provider: 09:25 Provider [facility] Chief Complaint Chief Complaint: UTI,WEAKNESS,FALL Subjective Subjective: Weakness still present but better. Requesting PT/OT to see her in hospital and upon discharge. Reports urinating better. Objective Appearance: Positive No Apparent Distress and Alert and Oriented x3 Chest/Lungs: Positive Symmetrical With Equal Breath Sounds, Clear to Auscultation Bilaterally and Good Air Movement all 4 Lung [place] Heart: Positive RRR and Pulses Normal GI/: Positive Soft, Nontender, Bowel Sounds Normal and No Distention Musculoskeletal: Positive Not Examined Neurological: Positive Sensation Intact, Motor intact, Alert and Oriented Vital Signs Vital Signs: Vital Signs: Last 24 Hours 12/27/24 11:59 12/27/24 12:00 12/27/24 13:00 Temperature Temperature Source Pulse Rate Respiratory Rate Blood Pressure Blood Pressure Mean Blood Pressure Location Blood Pressure Position O2 Sat by Pulse Oximetry Oxygen Delivery Method Room Air Room Air Weight 83 kg Telemetry Type Telemetry Monitoring Telemetry Heart Rate EKG ND Interval EKG QRS Interval Telemetry Strip Reading 12/27/24 13:00 12/27/24 14:00 12/27/24 14:00 Temperature 97.4 F L Temperature Source Temporal Artery Scan Pulse Rate 76 Respiratory Rate 17 Blood Pressure 131/94 H Blood Pressure Mean 106 Blood Pressure Location Right Arm Blood Pressure Position O2 Sat by Pulse Oximetry 98 Oxygen Delivery Method Room Air Room Air Weight Telemetry Type Remote Telemetry Telemetry Monitoring Continues Telemetry Heart Rate 80 EKG ND Interval 0.17 EKG QRS Interval 0.08 Telemetry Strip Reading NSR 12/27/24 15:00 12/27/24 16:00 12/27/24 17:00 Temperature Temperature Source Pulse Rate Respiratory Rate Blood Pressure Blood Pressure Mean Blood Pressure Location Blood Pressure Position O2 Sat by Pulse Oximetry Oxygen Delivery Method Room Air Room Air Room Air Weight Telemetry Type Telemetry Monitoring Telemetry Heart Rate EKG ND Interval EKG QRS Interval Telemetry Strip Reading 12/27/24 17:56 12/27/24 17:56 12/27/24 18:00 Temperature 97.9 F Temperature Source Temporal Artery Scan Pulse Rate 75 Respiratory Rate 16 Blood Pressure 140/85 Blood Pressure Mean 103 Blood Pressure Location Left Arm Blood Pressure Position O2 Sat by Pulse Oximetry 96 Oxygen Delivery Method Room Air Room Air Weight Telemetry Type Remote Telemetry Telemetry Monitoring Continues Telemetry Heart Rate 71 EKG ND Interval 0.16 EKG QRS Interval 0.08 Telemetry Strip Reading NSR 12/27/24 19:00 12/27/24 19:00 12/27/24 19:05 Temperature Temperature Source Pulse Rate Respiratory Rate Blood Pressure Blood Pressure Mean Blood Pressure Location Blood Pressure Position O2 Sat by Pulse Oximetry Oxygen Delivery Method Room Air Room Air Weight Telemetry Type Remote Telemetry Telemetry Monitoring Continues Telemetry Heart Rate 86 EKG ND Interval 0.18 EKG QRS Interval 0.08 Telemetry Strip Reading SR 12/27/24 20:00 12/27/24 20:59 12/27/24 21:46 Temperature Temperature Source Pulse Rate Respiratory Rate Blood Pressure Blood Pressure Mean Blood Pressure Location Blood Pressure Position O2 Sat by Pulse Oximetry Oxygen Delivery Method Room Air Room Air Room Air Weight Telemetry Type Telemetry Monitoring Telemetry Heart Rate EKG ND Interval EKG QRS Interval Telemetry Strip Reading 12/27/24 21:48 12/27/24 23:00 12/28/24 00:00 Temperature 97.1 F L Temperature Source Temporal Artery Scan Pulse Rate 74 Respiratory Rate 16 Blood Pressure 104/75 Blood Pressure Mean 84 Blood Pressure Location Left Arm Blood Pressure Position Supine O2 Sat by Pulse Oximetry 98 Oxygen Delivery Method Room Air Room Air Room Air Weight Telemetry Type Telemetry Monitoring Telemetry Heart Rate EKG ND Interval EKG QRS Interval Telemetry Strip Reading 12/28/24 01:00 12/28/24 01:00 12/28/24 02:00 Temperature 97.3 F L Temperature Source Temporal Artery Scan Pulse Rate 72 Respiratory Rate 16 Blood Pressure 121/73 Blood Pressure Mean 89 Blood Pressure Location Left Arm Blood Pressure Position Supine O2 Sat by Pulse Oximetry 98 Oxygen Delivery Method Room Air Room Air Weight Telemetry Type Remote Telemetry Telemetry Monitoring Continues Telemetry Heart Rate 67 EKG ND Interval 0.16 EKG QRS Interval 0.08 Telemetry Strip Reading SR 12/28/24 02:00 12/28/24 03:00 12/28/24 04:00 Temperature Temperature Source Pulse Rate Respiratory Rate Blood Pressure Blood Pressure Mean Blood Pressure Location Blood Pressure Position O2 Sat by Pulse Oximetry Oxygen Delivery Method Room Air Room Air Room Air Weight Telemetry Type Telemetry Monitoring Telemetry Heart Rate EKG ND Interval EKG QRS Interval Telemetry Strip Reading 12/28/24 05:00 12/28/24 05:09 12/28/24 05:53 Temperature 97.3 F L Temperature Source Temporal Artery Scan Pulse Rate 77 Respiratory Rate 18 Blood Pressure 118/77 Blood Pressure Mean 90 Blood Pressure Location Left Arm Blood Pressure Position Sitting O2 Sat by Pulse Oximetry 97 Oxygen Delivery Method Room Air Room Air Room Air Weight Telemetry Type Telemetry Monitoring Telemetry Heart Rate EKG ND Interval EKG QRS Interval Telemetry Strip Reading 12/28/24 07:00 12/28/24 07:00 12/28/24 08:00 Temperature Temperature Source Pulse Rate Respiratory Rate Blood Pressure Blood Pressure Mean Blood Pressure Location Blood Pressure Position O2 Sat by Pulse Oximetry Oxygen Delivery Method Room Air Room Air Weight Telemetry Type Remote Telemetry Telemetry Monitoring Continues Telemetry Heart Rate 75 EKG ND Interval 0.18 EKG QRS Interval 0.07 Telemetry Strip Reading NSR 12/28/24 09:00 12/28/24 10:00 12/28/24 10:00 Temperature 98.1 F Temperature Source Temporal Artery Scan Pulse Rate 77 Respiratory Rate 18 Blood Pressure 117/68 Blood Pressure Mean 84 Blood Pressure Location Right Arm Blood Pressure Position Supine O2 Sat by Pulse Oximetry 99 Oxygen Delivery Method Room Air Room Air Room Air Weight Telemetry Type Telemetry Monitoring Telemetry Heart Rate EKG ND Interval EKG QRS Interval Telemetry Strip Reading 12/28/24 11:00 Temperature Temperature Source Pulse Rate Respiratory Rate Blood Pressure Blood Pressure Mean Blood Pressure Location Blood Pressure Position O2 Sat by Pulse Oximetry Oxygen Delivery Method Room Air Weight Telemetry Type Telemetry Monitoring Telemetry Heart Rate EKG ND Interval EKG QRS Interval Telemetry Strip Reading Lab Results Lab Results: Lab Results: Last 24 Hours 12/28/24 12/27/24 12/27/24 05:22 12:53 08:43 WBC 2.13 L RBC 3.01 L Hgb 8.4 L Hct 27.6 L MCV 91.7 MCH 27.9 MCHC 30.4 L RDW Coeff of Riki 16.0 H Plt Count 70 L Immature Gran % (Auto) 0.0 Neut % (Auto) 70.4 Lymph % (Auto) 18.3 [place] % (Auto) 8.0 Eos % (Auto) 2.8 Baso % (Auto) 0.5 Neut # (Auto) 1.5 L Lymph # (Auto) 0.4 L [place] # (Auto) 0.2 L Eos # (Auto) 0.1 Baso # (Auto) 0.0 Immature Gran # (Auto) 0.0 Sodium 139.1 Potassium 4.59 Chloride 109.2 H Carbon Dioxide 26.4 Anion Gap 8.09 BUN 20.1 H Creatinine 1.08 Estimated GFR (MDRD) 50.00 BUN/Creatinine Ratio 18.61 Glucose 89.9 Calcium 8.30 L Total Bilirubin 0.35 AST 53.6 H ALT 26.6 Alkaline Phosphatase 116.2 Ammonia < 8.7 L Total Protein 5.79 L Albumin 2.92 L Globulin 2.87 Albumin/Globulin Ratio 1.01 Urine Opiates Screen Positive H Ur Oxycodone Screen Negative Urine Methadone Screen Negative Ur Barbiturates Screen Negative U Tricyclic Antidepress Negative Ur Phencyclidine Scrn Negative Ur Amphetamine Screen Negative U Methamphetamines Scrn Negative U Benzodiazepines Scrn Negative Urine Cocaine Screen Negative U Cannabinoids Screen Negative Plasma/Serum Alcohol < 10.0 Additional Comments Additional Comments: I have independently reviewed and interpreted the labs/EKGs/imaging ordered during this hospital stay. I have reviewed outside records that are available in our EMR that pertain to medical stay including imaging/notes/labs from previous visits. Active Medications Active Medications: Medications Generic Name Dose Route Start Last Admin Trade Name Freq PRN Reason Stop Dose Admin Acetaminophen 650 mg 12/27/24 11:47 Acetaminophen 325 Mg Tablet PO Q4H PRN Mild Pain Hydrocodone Bitart/Acetaminophen 1 tab 12/27/24 13:03 12/28/24 03:37 Hydrocodone Bit/Acetaminophen 7.5/325 Mg Tablet PO 1 tab BID PRN Administration Pain Albuterol Sulfate 2 puff 12/27/24 13:03 Albuterol Sulfate 8 Gm Inhaler IH Q4-6H PRN Wheezing Buspirone HCl 5 mg 12/27/24 13:03 12/27/24 13:17 Buspirone Hcl 10 Mg Tablet PO 5 mg BID PRN Administration Anxiety Cholecalciferol 1,000 unit 12/27/24 13:30 12/28/24 08:48 Cholecalciferol (Vitamin D3) 1,000 Unit (25 Mcg) Tablet PO 1,000 unit DAILY CARMEN Administration Gabapentin 100 mg 12/27/24 15:00 12/28/24 08:47 Gabapentin 100 Mg Capsule PO 100 mg TID CARMEN Administration Gabapentin 300 mg 12/27/24 15:00 12/28/24 08:47 Gabapentin 300 Mg Capsule PO 300 mg TID CARMEN Administration Sodium Chloride 1,000 mls @ 75 mls/hr 12/27/24 12:00 12/28/24 02:11 Sodium Chloride IV 75 mls/hr .[id number] CARMEN Administration CEFTRIAXONE/D5W 1 GM PREMIX 1 gm in 50 mls @ 100 mls/hr 12/28/24 09:00 12/28/24 08:48 Rocephin 1 Gm/50 Ml D5w IV 12/31/24 08:59 100 mls/hr DAILY CARMEN Administration Ibuprofen 200 mg 12/27/24 13:03 12/27/24 19:22 Ibuprofen 400 Mg Tablet PO 200 mg BID PRN Administration Pain Losartan Potassium 50 mg 12/28/24 09:00 12/28/24 08:47 Losartan Potassium 25 Mg Tablet PO 50 mg DAILY CARMEN Administration Sodium Chloride 1 syr 12/27/24 07:32 12/27/24 09:59 0.9% Sodium Chloride 10 Ml Disp.Syrin IVF 1 syr PRN PRN Administration To flush IV Plan Plan: 1. UTI - urine culture growth of gram negative rods, rocephin 1G Q24H 2. Pancytopenia - likely worsened due to UTI, PCP working on referral to Hem/Onc 3. Weakness - Improving, will consult PT/OT, pt requesting home health for strengthening 4. Chronic Alcoholic Cirrhosis - ammonia negative, ETOH negative, LFTs stable 5. COPD - does not appear in exacerbation, monitor 6. HTN - chronic, continue home medications Review Statement Review Statement: I have personally discussed and reviewed the patient's visit/currently labs/imaging/decision making with Dr. Madden, my supervising attending. Greater that 50 minutes spent with patient, 50% of the time spent with this patient was devoted to counseling and coordination of care.
[2024-12-29 06:09] LABS: HEMATOCRIT 28.5 % (37.0-47.0); HEMOGLOBIN 8.8 g/dl (12.0-16.0); MEAN CORPUSCULAR HEMOGLOBIN 28.3 pg (27.0-31.0); MEAN CORPUSCULAR HGB CONC 30.9 (31.8-35.4); MEAN CORPUSCULAR VOLUME 91.6 fl (81.0-99.0); PLATELET COUNT 78 10^3/uL (140-440); RDW COEFFICIENT OF VARIATION 15.9 % (11.6-14.8); RED BLOOD COUNT 3.11 10^6/ul (4.20-5.40)
[2024-12-29 06:19] LABS: ANISOCYTOSIS NOT PRESENT (NOT PRESENT); WHITE BLOOD COUNT 1.99 K/ul (4.6-10.2)
[2024-12-29 06:31] LABS: ALANINE AMINOTRANSFERASE 28.3 U/L (0-35); ALBUMIN 3.13 g/dL (3.5-5.0); ALKALINE PHOSPHATASE 119.6 U/L (53-141); ASPARTATE AMINO TRANSFERASE 51.7 U/L (14-36); BILIRUBIN,TOTAL 0.27 mg/dL (0.2-1.3); BLOOD UREA NITROGEN 16.1 mg/dL (7-17); CALCIUM 8.49 mg/dL (8.4-10.2); CARBON DIOXIDE 25.6 mmol/L (22-30.0); CHLORIDE 108.9 mmol/L (98-107); CREATININE 1.09 mg/dL (0.60-1.30); GLUCOSE 89.1 mg/dL (74-106); POTASSIUM 4.35 mmol/L (3.5-5.1); SODIUM 139.6 mmol/L (134.5-145); TOTAL PROTEIN 6.05 g/dL (6.3-8.2)
--- NOTE | 2024-12-29 09:44 | DCSUM ---
Admission Date Admission Date: 12/27/24 Discharge Date Discharge Date: 12/29/24 Admission Diagnosis Admission Diagnosis: 1. UTI 2. Pancytopenia 3. Weakness 4. Chronic Alcoholic Cirrhosis 5. COPD 6. HTN Discharge Diagnosis Discharge Diagnosis: 1. UTI d/t klebsiella pneumoniae - Improving, symptoms resolved, rx omnicef 2. Pancytopenia - likely worsened due to UTI, referral to hem/onc [facility] 3. Weakness - Improving, continue PT/OT 4. Chronic Alcoholic Cirrhosis - ammonia negative, ETOH negative, LFTs stable 5. COPD - Chronic, stable 6. HTN - chronic, stable Hospital Provider Hospital Provider: IMANI DAILY, [facility] Primary Care Physician Primary Care Physician: MAKEDA ADHIKARI MD Summary of History and Physical Summary of History and Physical: 74 yo female with pmh of alcoholic cirrhosis, splenomegaly, pancytopenia, COPD, and Hep C presented to the ER with weakness. Patient states that she was sleep ing on the couch last night due to grandchildren she is raising sleeping in her room. Got up to go to the bathroom and fell in the hallway. Denies hitting her head or other injuries. Did not call for help from grandsons. Crawled from the hallway back to the living room and was unable to lift herself up onto the couch from the floor. Unknown length of time she layed in the floor. States she has been getting progressively weak over the last couple days. Has noticed that she is not peeing much at all and is confused at times. States her grandsons will tell her something and she won't understand what they are telling her. Denies any fever, nausea, vomiting, or diarrhea. Denies any urinary frequency, urgency, or dysuria. CT scans negative for acute findings. Found to have UTI and given rocephin. Admitted to med/surg observation. Hospital Course Subjective: Patient was treated for UTI with rocephin. Urine culture final growth of klebsiella pneumoniae. Sensitive to rocephin. Rx for omnicef sent. Persistent Pancytopenia present. Not new for patient. Likely worse due to active infection. PCP has been attempting referral for hem/onc but patient does not have car and limited resources to get to appointments. This provider discussed concerns with blood counts additionally. Agreeable to go to [facility] and will arrange transportation. Weakness improved with treatment of UTI however patient feels that her weakness has been persistent. PT/OT consults completed and patient would benefit from further. Outpatient orders submitted. No changes to home medications. Follow-up with PCP next week. Appearance: Pleasant and No Apparent Distress HEENT: MMM, Supple and No JVD CVS: No Murmur Abdomen: Soft, Non-Tender and No Distention Respiratory: No Dyspnea Extremities: No Edema Vital Signs: Most Recent Vital Signs Temperature 98.1 F 12/29/24 05:42 Temperature Source Temporal Artery Scan 12/29/24 05:42 Temperature Source Temporal Artery Scan 12/27/24 07:09 Pulse Rate 80 12/29/24 05:42 Respiratory Rate 20 12/29/24 05:42 Blood Pressure 148/92 H 12/29/24 05:42 Blood Pressure Mean 110 12/29/24 05:42 Blood Pressure Right Arm 140/86 12/27/24 11:12 Blood Pressure Location Right Arm 12/29/24 05:42 Blood Pressure Position Sitting 12/29/24 05:42 O2 Sat by Pulse Oximetry 97 12/29/24 05:42 Oxygen Delivery Method Room Air 12/29/24 09:00 Height 5 ft 1 in 12/27/24 11:12 Weight 83 kg 12/27/24 11:59 Telemetry Type Remote Telemetry 12/29/24 07:00 Telemetry Monitoring Continues 12/29/24 07:00 Telemetry Heart Rate 82 12/29/24 07:00 EKG OR Interval 0.16 12/29/24 07:00 EKG QRS Interval 0.06 12/29/24 07:00 Telemetry Strip Reading SR 12/29/24 07:00 Imaging: EXAM: CT SCAN BRAIN WITHOUT CONTRAST HISTORY: Altered mental status COMPARISON: CT scan brain 04/14/2024 FINDINGS: Helically acquired axial images obtained from skull base to the convexities without contrast utilizing 5-mm collimation. Sagittal and coronal reconstructions were imaged and reviewed. The ventricles and CSF spaces are prominent compatible with age appropriate atrophy. There is moderate periventricular hypodensity noted compatible with chronic microvascular disease. No acute intracranial findings. Atherosclerotic changes are seen involving cavernous internal carotid arteries. The visualized paranasal sinuses and mastoid air cells are clear. The calvarium is intact. IMPRESSION: No acute intracranial findings Lab Results Last 24 Hours: 12/29/24 05:46 WBC 1.99 L* RBC 3.11 L Hgb 8.8 L Hct 28.5 L MCV 91.6 MCH 28.3 MCHC 30.9 L RDW Coeff of Riki 15.9 H Plt Count 78 L Neutrophils % (Manual) 66.0 Lymphocytes % (Manual) 22.0 Monocytes % (Manual) 8.0 Eosinophils % (Manual) 3.0 Basophils % (Manual) 1.0 Anisocytosis Not present Sodium 139.6 Potassium 4.35 Chloride 108.9 H Carbon Dioxide 25.6 Anion Gap 9.45 BUN 16.1 Creatinine 1.09 Estimated GFR (MDRD) 49.00 BUN/Creatinine Ratio 14.77 Glucose 89.1 Calcium 8.49 Total Bilirubin 0.27 AST 51.7 H ALT 28.3 Alkaline Phosphatase 119.6 Total Protein 6.05 L Albumin 3.13 L Globulin 2.92 Albumin/Globulin Ratio 1.07 Discharge Instructions Discharge Planning: Discharge Planning > 40 minutes If patient is discharged with left ventricular systolic dysfunction: no Discharged with a beta khris? [] If no, why not? [] Discharged with an john/arb? [] If no, why not? [] Diagnosis: Urinary Tract Infection Diet: Regular Activity: as tolerated, continue PT/OT Medications: Dequan Salasdinir - start tomorrow Referral sent for home health PT/OT and hem/onc for pancytopenia. Discharge Medications: Medications at Discharge (Home Meds & RX) cholecalciferol (vitamin D3) 25 mcg (1,000 unit) capsule 25 mcg PO QDAY 05/02/24 albuterol sulfate 90 mcg/actuation aerosol inhaler 2 puff inhalation Q4-6H PRN shortness of breath or wheezing #8.5 grams 08/17/24 diclofenac sodium 1 % topical gel (Arthritis Pain (diclofenac)) 2 g topical QID #100 grams 09/05/24 furosemide 20 mg tablet (Lasix) 20 mg PO DAILY #7 tabs 09/06/24 potassium chloride 20 mEq tablet,extended release 20 meq PO DAILYWM2 #30 tabs 09/12/24 hydrocodone 7.5 mg-acetaminophen 325 mg tablet 1 tab PO BID PRN pain #60 tabs 12/07/24 gabapentin 400 mg capsule 400 mg PO TID #270 caps 12/12/24 B12 1 tab PO DAILY 12/27/24 buspirone 5 mg tablet 5 mg PO BID PRN anxiety 12/27/24 ibuprofen 200 mg tablet 200 mg PO BID PRN Mild to Moderate pain 12/27/24 losartan 50 mg tablet 50 mg PO DAILY 12/27/24 trazodone 100 mg tablet 100 mg PO BEDTIME 12/27/24 cefdinir 300 mg capsule 300 mg PO BID #8 caps 12/29/24 Discharge Plan Discharge Discharge Orders: Discharge Patient (ONCE); Ordered 12/29/24 Ordered By: HELENA CALLES Activity Restrictions/Additional Instructions: Diagnosis: Urinary Tract Infection Diet: Regular Activity: as tolerated, continue PT/OT Medications: [facility] Cefdinir - start tomorrow You have been referred to [facility]. They will be in contact with you to initiate care. If you have any questions or need to speak with them, their contact number is [phone]. Instructions: Urinary Tract Infection in Women (ED) Patient Disposition: HOME SELF-CARE Prescriptions: New cefdinir 300 mg capsule 300 mg PO BID Qty: 8 0RF Rx Instructions: Start tomorrow Continued albuterol sulfate 90 mcg/actuation HFA aerosol inhaler 2 puff inhalation Q4-6H PRN (Reason: shortness of breath or wheezing) Qty: 8.5 0RF diclofenac sodium [Arthritis Pain (diclofenac)] 1 % gel 2 g topical QID Qty: 100 2RF Rx Instructions: apply to single elbow, wrist or hand; for hand includes palm/fingers/back of hand USE AFTER COMPLETING NAPROXEN potassium chloride 20 mEq tablet extended release 20 meq PO DAILYWM2 Qty: 30 5RF hydrocodone-acetaminophen 7.5-325 mg tablet 1 tab PO BID PRN (Reason: pain) Qty: 60 0RF gabapentin 400 mg capsule 400 mg PO TID Qty: 270 2RF buspirone 5 mg tablet 5 mg PO BID PRN (Reason: anxiety) losartan 50 mg tablet 50 mg PO DAILY ibuprofen 200 mg tablet 200 mg PO BID PRN (Reason: Mild to Moderate pain) B12 2,500 mcg tablet 1 tab PO DAILY trazodone 100 mg tablet 100 mg PO BEDTIME furosemide [Lasix] 20 mg tablet 20 mg PO DAILY Qty: 7 0RF cholecalciferol (vitamin D3) 25 mcg (1,000 unit) capsule 25 mcg PO QDAY Did you review [place] [employer] for ALL controlled substances?: No Discussed opioids are addictive and Narcan is available by prescription or from pharmacy.: No Condition: Stable Referrals: MAKEDA ADHIKARI MD [Primary Care Provider] - 01/01/25 9:45 am (with christiano nye )
[2024-12-29 10:17] VITALS: BP 151/87; PULSE 82; RESP 19; TEMP 98
== END 2024-12-29 13:10 | disposition home or self-care (01) ==
LOC: ED 07:08 → MEDSURG B 07:08
PROVIDERS: ADMIT Hospitalist; ATTEND Nurse Practitioner Family
DX: J44.9 Chronic obstructive pulmonary disease, unspecified; N39.0 Urinary tract infection, site not specified; Z20.822 Contact with and (suspected) exposure to COVID-19; W19.XXXA Unspecified fall, initial encounter; D61.818 Other pancytopenia; I10 Essential (primary) hypertension; M62.81 Muscle weakness (generalized); R16.1 Splenomegaly, not elsewhere classified; M54.50 Low back pain, unspecified; B96.1 Klebsiella pneumoniae [K. pneumoniae] as the cause of diseases classified elsewhere; Z51.81 Encounter for therapeutic drug level monitoring; K70.30 Alcoholic cirrhosis of liver without ascites; Z79.899 Other long term (current) drug therapy